=== PATIENT | female | born 1945 | race Caucasian/White ===

== ENCOUNTER 2016-03-24 10:13 | Emergency (ER) | payer OTHER ==
[~2016-03-24] VITALS: Ht 157.5 cm; Wt 56.8 kg
[~2016-03-24 10:13] MED LIST: ANT25 PO; LEVO50TA6 PO; XNX25X PO
[2016-03-24 10:17] VITALS: TEMP 36.6; Ht 157.5 cm; Wt 56.8 kg
[2016-03-24 11:10] LABS: BASO % 0.2 %; BASO ABS # 0.02 K/uL (0-0.2); COMPLETE YES; EOS % 0.7 %; HEMATOCRIT 42.4 % (37-47); IG% 0.2 %; LYMPH % 16.1 %; LYMPH ABS # 1.44 K/uL (1.2-3.4); MEAN CELL VOLUME 92.2 fL (80-100); MEAN CORPUSCULAR HEMOGLOBIN 31.5 pg (25-34); MEAN CORPUSCULAR HGB CONC 34.2 g/dl (32-36); MEAN PLATELET VOLUME 10.7 fL (7.4-10.4); MONO % 7.3 %; NEUT % 75.5 %; PLATELET COUNT 229 K/uL (130-400); WHITE BLOOD COUNT 8.95 K/uL (4.8-10.8)
[2016-03-24 11:19] LABS: MANUAL MICROSCOPIC REQUIRED? NO; REVIEW REQ? NO; URINE APPEARANCE CLEAR (CLEAR); URINE BILIRUBIN NEG (NEG); URINE COLOR YELLOW; URINE EPITHELIAL CELL AUTO >30 /lpf (0-5); URINE NITRITE POS (NEG); URINE SPECIFIC GRAVITY 1.012 (1.000-1.030); UROBILINOGEN NEG (NEG); ZZUR CULT IF INDIC CLEAN CATCH YES
[2016-03-24 11:40] LABS: ALKALINE PHOSPHATASE 89 U/L (45-117); ALT/SGPT 26 U/L (12-78); AST/SGOT 19 U/L (15-37); BLOOD UREA NITROGEN 19 mg/dl (7-18); BUN/CREATININE RATIO 15.8 (10-20); CALCIUM 9.8 mg/dl (8.5-10.1); CARBON DIOXIDE 26 mmol/L (21-32); CHLORIDE 105 mmol/L (98-107); GLUCOSE 115 mg/dl (70-99); POTASSIUM 4.3 mmol/L (3.5-5.1); SODIUM 140 mmol/L (136-145)
--- NOTE | 2016-03-24 12:27 | DIAGNOSTIC IMAGING REPORT ---
LUMBAR SPINE 2 OR 3 VIEWS CLINICAL HISTORY: lower back pain COMPARISON STUDY: None. FINDINGS: No fracture or subluxation within the lumbar spine. Mild disc space at L4-L5. Mild facet degenerative changes seen within the lower lumbar spine. Suture material within the right upper quadrant. IMPRESSION: No fracture or subluxation within the lumbar spine. Mild degenerative changes as described above. Electronically signed by: Humberto Landaverde M.D. 03/24/2016 12:25 PM Dictated Date/Time: 03/24/2016 12:23 PM
--- NOTE | 2016-03-24 13:01 | DIAGNOSTIC IMAGING REPORT ---
PELVIC ULTRASOUND, TRANSABDOMINAL HISTORY: pelvic mass COMPARISON: None. FINDINGS: The patient deferred transvaginal scanning. The patient is status post hysterectomy. Tubular hypoechoic structure along the right anterior side of the bladder favors a loop of bowel. No masses or fluid collections identified within the pelvis. IMPRESSION: 1. Status post hysterectomy. 2. No masses or fluid collection identified within the pelvis. Electronically signed by: Humberto Landaverde M.D. 03/24/2016 1:00 PM Dictated Date/Time: 03/24/2016 12:59 PM
[2016-03-24 13:10] VITALS: BP 100/65; PULSE 67; O2SAT 98
[2016-03-24] MEDS ORDERED: CEPHALEXIN MONOHYDRATE 250 MG CAP PO ONE (13:15)
[2016-03-24] MEDS ORDERED: CEPH500C2 PO (13:27)
--- NOTE | 2016-03-24 16:01 | EMERGENCY ROOM VISIT NOTE ---
History Report prepared by Brittany: Rebel Lambert Under the Supervision of: Dr. Nain Mcclure D.O. First contact with patient: 10:25 Chief Complaint: BACK PAIN Stated Complaint: LOWER BACK PAIN History of Present Illness The patient is a 70 year old female who presents to the Emergency Room with complaints of constant lower back pain for about a month. The patient additionally complains of a headache and a lump around her vagina that formed today. The patient denies any vaginal bleeding, discharge, weakness or numbness. She states that she has had off and on pain with urination. The patient states that her last bowel movement was this morning. She states that she has a history of a total hysterectomy. Patient has no other complaints at this time. Pt denies, change in vision, fevers, chest pain, shortness of breath , nausea, vomiting, diarrhea, and melena. Source of History: patient Onset: one month ago Position: back (lower) Timing: constant Associated Symptoms: + headache, + urinary symptoms, No numbness, No weakness Review of Systems See HPI for pertinent positives & negatives. A total of 10 systems reviewed and were otherwise negative. Past Medical & Surgical Medical Problems: (1) Hypothyroidism Surgical Problems: (1) History of appendectomy (2) History of cholecystectomy (3) History of hysterectomy Family History Patient reports no known family medical history. Social History Smoking Status: Current Every Day Smoker Alcohol Use: none Drug Use: none Marital Status: Housing Status: lives with family Occupation Status: retired Current/Historical Medications Scheduled Cephalexin Monohydrate (Keflex), 500 MG PO QID Levothyroxine Sodium (Levothyroxine Sodium), 50 MCG PO DAILY Scheduled PRN Alprazolam (Xanax), 0.25 MG PO TID PRN for Anxiety Allergies Coded Allergies: Morphine (Verified Allergy, Intermediate, GI SYMPTOMS, 03/24/16) Codeine (Verified Allergy, Unknown, ., 03/24/16) Doxycycline (Verified Allergy, Unknown, UNKNOWN, 03/24/16) Povidone (Verified Allergy, Unknown, ., 03/24/16) Sulfa Drugs (Verified Allergy, Unknown, ., 03/24/16) Tetracycline (Verified Allergy, Unknown, ., 03/24/16) Physical Exam Vital Signs Date Time Temp Pulse Resp B/P Pulse Ox O2 Delivery O2 Flow Rate FiO2 03/24/16 13:10 67 16 100/65 98 03/24/16 10:17 36.6 102 18 135/78 99 Room Air Physical Exam GENERAL: Sitting up. Alert, well appearing, well nourished, no distress, non- toxic EYE EXAM: normal conjunctiva OROPHARYNX: no exudate, no erythema, lips, buccal mucosa, and tongue normal and mucous membranes are moist NECK: supple, no nuchal rigidity, no adenopathy, non-tender LUNGS: Clear to auscultation. Normal chest wall mechanics HEART: no murmurs, S1 normal and S2 normal ABDOMEN: abdomen soft, non-tender, normo-active bowel sounds, no masses, no rebound or guarding. BACK: Acute reproducible tenderness in the right paraspinal region in the lower lumbar. SKIN: no rashes and no bruising UPPER EXTREMITIES: upper extremities are grossly normal. LOWER EXTREMITIES: Flexion and extension of the hip, knee ankle EHL 5/5 bilaterally. Gross sensation is intact. Able to ambulate without difficulty. NEURO EXAM: Normal sensorium : Normal external genitalia. Slight prolapse appears to be the vagina at about 12 to 11:00 but this does not protrude through the labia majora. No discharge or bleeding. Medical Decision & Procedures ER Provider Diagnostic Interpretation: Xray results per the radiologist and my interpretation. Other results have been interpreted by the radiologist and reviewed by me. LUMBAR SPINE 2 OR 3 VIEWS CLINICAL HISTORY: lower back pain COMPARISON STUDY: None. FINDINGS: No fracture or subluxation within the lumbar spine. Mild disc space at L4-L5. Mild facet degenerative changes seen within the lower lumbar spine. Suture material within the right upper quadrant. IMPRESSION: No fracture or subluxation within the lumbar spine. Mild degenerative changes as described above. Electronically signed by: Humberto Landaverde M.D. 03/24/2016 12:25 PM Dictated Date/Time: 03/24/2016 12:23 PM PELVIC ULTRASOUND, TRANSABDOMINAL HISTORY: pelvic mass COMPARISON: None. FINDINGS: The patient deferred transvaginal scanning. The patient is status post hysterectomy. Tubular hypoechoic structure along the right anterior side of the bladder favors a loop of bowel. No masses or fluid collections identified within the pelvis. IMPRESSION: 1. Status post hysterectomy. 2. No masses or fluid collection identified within the pelvis. Electronically signed by: Humberto Landaverde M.D. 03/24/2016 1:00 PM Dictated Date/Time: 03/24/2016 12:59 PM Laboratory Results 03/24/16 10:48 Red Blood Count 4.60, Mean Corpuscular Volume 92.2, Mean Corpuscular Hemoglobin 31.5, Mean Corpuscular Hemoglobin Concent 34.2, Mean Platelet Volume 10.7, Neutrophils (%) (Auto) 75.5, Lymphocytes (%) (Auto) 16.1, Monocytes (%) (Auto) 7.3, Eosinophils (%) (Auto) 0.7, Basophils (%) (Auto) 0.2, Neutrophils # (Auto) 6.76, Lymphocytes # (Auto) 1.44, Monocytes # (Auto) 0.65, Eosinophils # (Auto) 0.06, Basophils # (Auto) 0.02 03/24/16 10:48 Test 03/24/16 00:00 03/24/16 10:48 Urine Color YELLOW Urine Appearance CLEAR (CLEAR) Urine pH 5.0 (4.5-7.5) Urine Specific [place] 1.012 (1.000-1.030) Urine Protein NEG (NEG) Urine Glucose (UA) NEG (NEG) Urine Ketones NEG (NEG) Urine Occult Blood 1+ (NEG) Urine Nitrite POS (NEG) Urine Bilirubin NEG (NEG) Urine Urobilinogen NEG (NEG) Urine Leukocyte Esterase SMALL (NEG) Urine WBC (Auto) 1-5 /hpf (0-5) Urine RBC (Auto) 0-4 /hpf (0-4) Urine Hyaline Casts (Auto) 1-5 /lpf (0-5) Urine Epithelial Cells (Auto) >30 /lpf (0-5) Urine Bacteria (Auto) 4+ (NEG) White Blood Count 8.95 K/uL (4.8-10.8) Red Blood Count 4.60 M/uL (4.2-5.4) Hemoglobin 14.5 g/dL (12.0-16.0) Hematocrit 42.4 % (37-47) Mean Corpuscular Volume 92.2 fL (80-100) Mean Corpuscular Hemoglobin 31.5 pg (25-34) Mean Corpuscular Hemoglobin Concent 34.2 g/dl (32-36) Platelet Count 229 K/uL (130-400) Mean Platelet Volume 10.7 fL (7.4-10.4) Neutrophils (%) (Auto) 75.5 % Lymphocytes (%) (Auto) 16.1 % Monocytes (%) (Auto) 7.3 % Eosinophils (%) (Auto) 0.7 % Basophils (%) (Auto) 0.2 % Neutrophils # (Auto) 6.76 K/uL (1.4-6.5) Lymphocytes # (Auto) 1.44 K/uL (1.2-3.4) Monocytes # (Auto) 0.65 K/uL (0.11-0.59) Eosinophils # (Auto) 0.06 K/uL (0-0.5) Basophils # (Auto) 0.02 K/uL (0-0.2) RDW Standard Deviation 44.0 fL (36.4-46.3) RDW Coefficient of Variation 13.2 % (11.5-14.5) Immature Granulocyte % (Auto) 0.2 % Immature Granulocyte # (Auto) 0.02 K/uL (0.00-0.02) Anion Gap 9.0 mmol/L (3-11) Est Creatinine Clear Calc Drug Dose 35.0 ml/min Estimated GFR () 53.4 Estimated GFR (Non- 46.1 BUN/Creatinine Ratio 15.8 (10-20) Calcium Level 9.8 mg/dl (8.5-10.1) Total Bilirubin 0.4 mg/dl (0.2-1) Direct Bilirubin mg/dl (0-0.2) Aspartate Amino Transf (AST/SGOT) 19 U/L (15-37) Alanine Aminotransferase (ALT/SGPT) 26 U/L (12-78) Alkaline Phosphatase 89 U/L (45-117) Total Protein 7.9 gm/dl (6.4-8.2) Albumin 4.3 gm/dl (3.4-5.0) Lipase 148 U/L (73-393) Chemistry Specimen Hemolysis Laboratory results per my review. Medications Administered Medications (Trade) Dose Ordered Sig/Benjamin Route Start Time Stop Time Status Last Admin Dose Admin Cephalexin Monohydrate (Keflex Cap) 500 mg NOW ONCE PO 03/24/16 13:15 03/24/16 13:16 DC 03/24/16 13:12 500 MG ED Course ED COURSE: Vital signs were reviewed and showed tachycardia The patients medical record was reviewed The above diagnostic studies were performed and reviewed. ED treatments and interventions as stated above. 1025: The patient was evaluated in room A4. A complete history and physical examination was performed. 1315: Keflex Cap 500mg PO 1321: Upon reevaluation, the patient is resting.I discussed my findings with the patient and she understands and agrees with the treatment plan. Based on the patients age, coexisting illnesses, exam and lab findings the decision to treat as an outpatient was made. The patient remained stable while under my care. The patient appeared well at the time of discharge. Medical Decision Differential diagnoses includes but is not limited to lumbar radiculopathy, muscle strain, facture, cauda equina, mass, and disc herniation. Patient is a 70-year-old female who presents the ER for vaginal mass. She notes that she noted this this morning. She also admits to chronic low back pain which is worse with overuse over the past month. No weakness or numbness in the legs. CBC along with BMP, LFTs, bilirubin and lipase were unremarkable. UA had nitrates along with blood, leuks, bacteria but there were epithelial cells present. With her urgency and dysuria I did elect to treat with Keflex. Pelvic exam suggest a vaginal prolapse which I feel is the cause of her symptoms however this is extremely mild. Ultrasound was unremarkable. Updated the patient at bedside. She is discharged follow-up with gynecology within the week. Discussed with Pt concerning signs and symptoms to watch out for. Pt was instructed to follow up with their PCP and discussed with the patient their option to return to the ED at anytime for persistent or worsening symptoms. The appropriate anticipatory guidance and out-patient management, including indications for return to the emergency department, were explained at length to the patient and understood. Impression Primary Impression: UTI (urinary tract infection) Additional Impression: Vaginal prolapse Scribe Attestation The scribe's documentation has been prepared under my direction and personally reviewed by me in its entirety. I confirm that the note above accurately reflects all work, treatment, procedures, and medical decision making performed by me. Departure Information Dispostion Home / Self-Care Prescriptions Cephalexin Monohydrate (KEFLEX) 500 Mg Cap 500 MG PO QID for 7 Days, #28 CAP Prov: Nain Mcclure, DO 03/24/16 Referrals Taiwo Wade M.D. (PCP) Forms HOME CARE DOCUMENTATION FORM, IMPORTANT VISIT INFORMATION Patient Instructions My [facility], Pelvic Organ Prolapse, UTI Additional Instructions Please follow up with your primary care doctor with in the next 24 hours. Any worsening of your symptoms, please return to the ED immediately. This includes fevers greater than 100.4, worsening pain with urination, inability urinate, worsening pain, new pelvic mass, or any other concerning signs or symptoms from your standpoint. Please follow up with gynecology within the next week. Problem Qualifiers Primary Impression: UTI (urinary tract infection) Urinary tract infection type: acute cystitis Hematuria presence: with hematuria Qualified Codes: N30.01 - Acute cystitis with hematuria
--- NOTE | 2016-03-26 11:41 | Pharmacy Progress Note ---
ED Pharmacist Culture FollowUp Date of Service: Mar 26, 2016. Patient had originally been prescribed Keflex for treatment of UTI on 03/24, however the patient developed an allergic reaction to the Keflex. The urine culture finalized today and is growing pansensitive E coli. She has reported allergies to "sulfa", cephalosporins and tetracyclines. Her renal fxn is also poor, making nitrofurantoin a less desirable option. Reviewed the case with Dr Acuna. Will place the patient on Levofloxacin. I contacted the patient to determine which pharmacy she would like the new Rx called. She asked the Rx be called to [facility] ([phone]). I phone Rx for Levofloxacin 250mg PO daily x 7 days, No refill, per Dr Acuna.
[2016-05-28] MEDS ORDERED: ALPR-411 PO (10:51)
[2016-05-29] MEDS ORDERED: MCRB100 PO (16:42)
== END 2016-03-24 13:38 | disposition home or self-care (01) ==
LOC: C.EDB 10:14 → C.EDA 13:38
DX: N30.01 Acute cystitis with hematuria (principal); N81.10 Cystocele, unspecified; E03.9 Hypothyroidism, unspecified; F17.200 Nicotine dependence, unspecified, uncomplicated; Z79.899 Other long term (current) drug therapy

== ENCOUNTER 2016-03-25 20:59 | Emergency (ER) | payer OTHER ==
[~2016-03-25] VITALS: Ht 157.5 cm; Wt 57.9 kg
[~2016-03-25 20:59] MED LIST changes: +CEPH500C2 PO
[2016-03-25 21:10] VITALS: TEMP 37; Ht 157.5 cm; Wt 57.9 kg
[2016-03-25] MEDS ORDERED: IBUPROFEN 600 MG TAB PO STA (21:40)
[2016-03-25] MEDS ORDERED: DiphenhydrAMINE HCL 50 MG/ML VIAL IV STA (21:41)
[2016-03-25] MEDS: ONDANSETRON INJ 2 MG/ML 2 ML VIAL IV STA ×2 (21:57→22:01)
--- NOTE | 2016-03-25 22:05 | EMERGENCY ROOM VISIT NOTE ---
History Report prepared by Brittany: Cameron Monroe Under the Supervision of: Dr. Crissy Johnson D.O. First contact with patient: 21:28 Chief Complaint: ALLERGIC REACTION Stated Complaint: ALLERGIC REACTION Nursing Triage Summary: Pt was seen here yesterday and UTI and given Keflex. Pt reports she took a dose around 6pm today and approximately 45mins-1 hour later became to feel warm, had burning sensation down both her sides, numbness/tingling in arms and legs, and felt that her tongue was swelling. She reports feeling her heart racing and presents with headache 06/03. Denies SOB. History of Present Illness The patient is a 70 year old female who presents to the Emergency Room due to concerns over a possible allergic reaction after taking a dosage of Keflex tonight, 3.5 hours prior to arrival. The patient was in the Emergency Department yesterday and was diagnosed with a Urinary Tract Infection. She was given a prescription for Keflex and took two dosages yesterday. She took one dose early this morning and another this evening at 1800. After taking this last dose she began to experience burning under her arms, tingling sensations, and a dry mouth. She also states that it felt as though her heart was fluttering. The patient took one half of a Xanax when her symptoms began, without relief. At her appointment yesterday she was experiencing lower back pain, she states she is still experiencing her lower back pain and it is worse than yesterday. She also currently complaining of a headache. The patient is allergic to multiple prescription medications, and has experienced the burning sensation under her arms with previous reactions. She did not notice any rashes and did not take any Benadryl. Source of History: patient Onset: 3.5 hours [employer] Position: other (Global ) Quality: burning (Under Arms) Timing: other (Persistent) Associated Symptoms: + back pain, + headache Note: Bodily tingling, dry mouth. Review of Systems See HPI for pertinent positives & negatives. A total of 10 systems reviewed and were otherwise negative. Past Medical & Surgical Medical Problems: (1) Hypothyroidism Surgical Problems: (1) History of appendectomy (2) History of cholecystectomy (3) History of hysterectomy Family History Patient reports no known family medical history. Social History Smoking Status: Current Every Day Smoker Alcohol Use: none Drug Use: none Marital Status: Housing Status: lives with family Occupation Status: retired Current/Historical Medications Scheduled Cephalexin Monohydrate (Keflex), 500 MG PO QID Levothyroxine Sodium (Levothyroxine Sodium), 50 MCG PO DAILY Scheduled PRN Alprazolam (Xanax), 0.25 MG PO TID PRN for Anxiety Allergies Coded Allergies: Cephalexin (Verified Allergy, Intermediate, RASH, 03/26/16) Morphine (Verified Allergy, Intermediate, GI SYMPTOMS, 03/24/16) Codeine (Verified Allergy, Unknown, ., 03/24/16) Doxycycline (Verified Allergy, Unknown, UNKNOWN, 03/24/16) Povidone (Verified Allergy, Unknown, ., 03/24/16) Sulfa Drugs (Verified Allergy, Unknown, ., 03/24/16) Tetracycline (Verified Allergy, Unknown, ., 03/24/16) Physical Exam Vital Signs Date Time Temp Pulse Resp B/P Pulse Ox O2 Delivery O2 Flow Rate FiO2 03/26/16 00:10 66 16 100/62 95 03/25/16 23:04 76 16 105/51 93 Room Air 03/25/16 22:36 72 19 116/58 93 Room Air 03/25/16 22:12 80 03/25/16 21:10 37.0 77 15 138/64 96 Room Air 03/25/16 21:10 96 Room Air Physical Exam HEENT: Head - normocephalic and atraumatic Pupils are equal, round, and reactive to light. Extraocular eye muscles are intact, and sclera are anicteric. Nose - moist nasal mucosa without discharge. Mouth - moist buccal mucosa. Oropharynx is nonerythematous and there is no tonsillar exudate or edema noted. No uvular edema in posterior oropharynx. Neck: Supple; no JVD, nuchal rigidity, cervical lymphadenopathy. Heart: Regular rate and rhythm. There is a normal S1 and S2 with no murmurs, clicks, or gallops appreciated. Lungs: Clear to auscultation bilaterally with no wheezes, rales, or rhonchi. Abdomen: Soft, completely nontender, nondistended, with good bowel sounds. There are no palpable pulsatile masses or hepatosplenomegaly. There is no guarding, rigidity, or rebound noted. Extremities: No evidence of cyanosis, clubbing, or edema. There are easily palpable peripheral pulses. Skin: warm and dry with good turgor and no rashes. Medical Decision & Procedures Laboratory Results 03/25/16 21:12 Red Blood Count 4.30, Mean Corpuscular Volume 93.3, Mean Corpuscular Hemoglobin 31.4, Mean Corpuscular Hemoglobin Concent 33.7, Mean Platelet Volume 10.9, Neutrophils (%) (Auto) 71.2, Lymphocytes (%) (Auto) 20.9, Monocytes (%) (Auto) 6.1, Eosinophils (%) (Auto) 1.4, Basophils (%) (Auto) 0.3, Neutrophils # (Auto) 6.55, Lymphocytes # (Auto) 1.92, Monocytes # (Auto) 0.56, Eosinophils # (Auto) 0.13, Basophils # (Auto) 0.03 03/25/16 21:12 Test 03/25/16 21:12 White Blood Count 9.20 K/uL (4.8-10.8) Red Blood Count 4.30 M/uL (4.2-5.4) Hemoglobin 13.5 g/dL (12.0-16.0) Hematocrit 40.1 % (37-47) Mean Corpuscular Volume 93.3 fL (80-100) Mean Corpuscular Hemoglobin 31.4 pg (25-34) Mean Corpuscular Hemoglobin Concent 33.7 g/dl (32-36) Platelet Count 207 K/uL (130-400) Mean Platelet Volume 10.9 fL (7.4-10.4) Neutrophils (%) (Auto) 71.2 % Lymphocytes (%) (Auto) 20.9 % Monocytes (%) (Auto) 6.1 % Eosinophils (%) (Auto) 1.4 % Basophils (%) (Auto) 0.3 % Neutrophils # (Auto) 6.55 K/uL (1.4-6.5) Lymphocytes # (Auto) 1.92 K/uL (1.2-3.4) Monocytes # (Auto) 0.56 K/uL (0.11-0.59) Eosinophils # (Auto) 0.13 K/uL (0-0.5) Basophils # (Auto) 0.03 K/uL (0-0.2) RDW Standard Deviation 46.1 fL (36.4-46.3) RDW Coefficient of Variation 13.5 % (11.5-14.5) Immature Granulocyte % (Auto) 0.1 % Immature Granulocyte # (Auto) 0.01 K/uL (0.00-0.02) Anion Gap 10.0 mmol/L (3-11) Est Creatinine Clear Calc Drug Dose 30.0 ml/min Estimated GFR () 44.3 Estimated GFR (Non- 38.2 BUN/Creatinine Ratio 15.1 (10-20) Calcium Level 9.1 mg/dl (8.5-10.1) Laboratory results per my review. Medications Administered Medications (Trade) Dose Ordered Sig/Benjamin Route Start Time Stop Time Status Last Admin Dose Admin Ibuprofen (Motrin Tab) 600 mg NOW STAT PO 03/25/16 21:40 03/25/16 21:42 DC 03/25/16 21:56 600 MG Diphenhydramine HCl 25 mg 25 mg NOW STAT IV 03/25/16 21:41 03/25/16 21:42 DC 03/25/16 21:56 25 MG Sodium Chloride (Nss 500ml) 500 ml @ 999 mls/hr Q31M STAT IV 03/25/16 22:37 03/25/16 23:07 DC 03/25/16 22:43 999 MLS/HR Procedure Medications Ordered: Motrin, Benadryl, Zofran, Sodium Chloride. ED Course 2131: Past medical records reviewed. The patient was evaluated in room A3. A complete history and physical exam was performed. An IV lock was initiated and labs are drawn as above. 2139: Ordered Motrin 600 mg PO, Benadryl 25 mg IV. 2156: The patient is now complaining of nausea. I will order nausea medication. 2156: Ordered Zofran 4 mg IV. 2217: I reviewed the patient's urine culture from yesterday and showed greater than 100,000 colonies of E. Coli. Sensitivities were pending. 2236: Ordered Sodium Chloride 500 mL @ 999 mL/hr IV. 2238: I reevaluated the patient at this time, she has experienced significant relief of her back pain with Motrin. She feels much better. 2256: Upon reevaluation, the patient has had improvement of her symptoms. I discussed findings and results with her. She verbalized agreement of the treatment plan. The patient was discharged home. Medical Decision The patient is a 70 year old female who presents to the Emergency Department for a possible allergic reaction. Differential Diagnosis include: Allergic Reaction, anaphylaxis, pyelonephritis, sepsis, and urinary tract infection. Laboratory Results were reviewed and show: BUN elevated to 21, creatinine elevated to 1.4 from 1.2 yesterday. Glucose 96, no leukocytosis. The patient has evidence of Escherichia coli cystitis. She has significant drug allergies. She is now also allergic to Keflex. We will wait for her urine culture/sensitivities to prescribe another antibiotic. Renal function remains normal. She will use Benadryl for further reaction. She can use Motrin for headache or back pain. We will contact her once the sensitivities are resulted. The patient was noted to be moderately dehydrated. She was encouraged to take increase clear liquids. Impression Primary Impression: Allergic reaction Additional Impression: Dehydration Scribe Attestation The scribe's documentation has been prepared under my direction and personally reviewed by me in its entirety. I confirm that the note above accurately reflects all work, treatment, procedures, and medical decision making performed by me. Departure Information Dispostion Home / Self-Care Referrals Taiwo Wade M.D. (PCP) Forms HOME CARE DOCUMENTATION FORM, IMPORTANT VISIT INFORMATION Patient Instructions My [facility] Additional Instructions Stop the keflex You will be contacted tomorrow with a new antibiotic to treat your UTI. Benadryl - 25mg every 6 hours for further allergic reaction Take plenty of clear fluids Problem Qualifiers Primary Impression: Allergic reaction Encounter type: initial encounter Qualified Codes: T78.40XA - Allergy, unspecified, initial encounter
[2016-03-25 22:33] LABS: BUN/CREATININE RATIO 15.1 (10-20); CALCIUM 9.1 mg/dl (8.5-10.1); CREATININE 1.4 mg/dl (0.60-1.20); POTASSIUM 4.1 mmol/L (3.5-5.1)
[2016-03-25 22:35] LABS: BASO % 0.3 %; BASO ABS # 0.03 K/uL (0-0.2); COMPLETE YES; EOS % 1.4 %; HEMATOCRIT 40.1 % (37-47); IG% 0.1 %; LYMPH % 20.9 %; LYMPH ABS # 1.92 K/uL (1.2-3.4); MEAN CELL VOLUME 93.3 fL (80-100); MEAN CORPUSCULAR HEMOGLOBIN 31.4 pg (25-34); MEAN CORPUSCULAR HGB CONC 33.7 g/dl (32-36); MEAN PLATELET VOLUME 10.9 fL (7.4-10.4); MONO % 6.1 %; NEUT % 71.2 %; PLATELET COUNT 207 K/uL (130-400)
[2016-03-25] MEDS ORDERED: SODIUM CHLORIDE 0.9% 500ML 500 ML IV STA (22:37)
[2016-03-26 00:10] VITALS: BP 100/62; PULSE 66; O2SAT 95
[2016-05-28] MEDS ORDERED: ALPR-411 PO (10:51)
[2016-05-29] MEDS ORDERED: MCRB100 PO (16:42)
== END 2016-03-26 00:10 | disposition home or self-care (01) ==
LOC: EDBD 20:59 → C.EDA 21:00
DX: T78.40XA Allergy, unspecified, initial encounter (principal); T36.1X5A Adverse effect of cephalosporins and other beta-lactam antibiotics, initial encounter; R20.8 Other disturbances of skin sensation; R20.2 Paresthesia of skin; E86.0 Dehydration; E03.9 Hypothyroidism, unspecified; F17.200 Nicotine dependence, unspecified, uncomplicated; Z79.899 Other long term (current) drug therapy; X58.XXXA Exposure to other specified factors, initial encounter

== ENCOUNTER 2016-03-28 19:53 | Emergency (ER) | payer OTHER ==
[~2016-03-28] VITALS: Ht 157.5 cm; Wt 57.4 kg
[~2016-03-28 19:53] MED LIST changes: -ANT25 PO; -XNX25X PO
[2016-03-28 19:58] VITALS: TEMP 37.1; Ht 157.5 cm; Wt 57.4 kg
[2016-03-28] MEDS ORDERED: LEVO-17 PO (20:34)
[2016-03-28] MEDS ORDERED: SODIUM CHLORIDE 0.9% 1000ML 1,000 ML IV STA (21:06)
[2016-03-28] MEDS ORDERED: ONDANSETRON INJ 2 MG/ML 2 ML VIAL IV STA (21:06)
[2016-03-28 21:26] LABS: URINE APPEARANCE CLEAR (CLEAR); URINE BILIRUBIN NEG (NEG); URINE COLOR YELLOW; URINE NITRITE NEG (NEG); UROBILINOGEN NEG (NEG); ZZUR CULT IF INDIC CLEAN CATCH NO
--- NOTE | 2016-03-28 21:33 | DIAGNOSTIC IMAGING REPORT ---
CHEST ONE VIEW PORTABLE HISTORY: Atypical chest pain. COMPARISON: Chest 03/24/2015. FINDINGS: Stable slight elevation of the left hemidiaphragm. Mild interstitial thickening which is likely chronic. No new focal lung consolidations. No evidence for pulmonary edema. No pleural effusions. No pneumothorax. The heart remains top normal in size. IMPRESSION: No significant change compared to the prior study. No acute process. Electronically signed by: Humberto Landaverde M.D. 03/28/2016 9:32 PM Dictated Date/Time: 03/28/2016 9:31 PM
[2016-03-28 21:37] LABS: BASO % 0.2 %; BASO ABS # 0.02 K/uL (0-0.2); COMPLETE YES; EOS % 1.5 %; HEMATOCRIT 39.4 % (37-47); IG% 0.2 %; LYMPH % 20.7 %; LYMPH ABS # 1.82 K/uL (1.2-3.4); MEAN CELL VOLUME 92.5 fL (80-100); MEAN CORPUSCULAR HEMOGLOBIN 30.5 pg (25-34); MEAN PLATELET VOLUME 10.8 fL (7.4-10.4); MONO % 7.6 %; NEUT % 69.8 %; PLATELET COUNT 219 K/uL (130-400); RED BLOOD COUNT 4.26 M/uL (4.2-5.4); WHITE BLOOD COUNT 8.78 K/uL (4.8-10.8)
[2016-03-28 21:45] LABS: ALT/SGPT 27 U/L (12-78); BLOOD UREA NITROGEN 17 mg/dl (7-18); BUN/CREATININE RATIO 12.2 (10-20); CALCIUM 9.3 mg/dl (8.5-10.1); CARBON DIOXIDE 26 mmol/L (21-32); CHLORIDE 105 mmol/L (98-107); GLUCOSE 139 mg/dl (70-99); POTASSIUM 3.8 mmol/L (3.5-5.1); SODIUM 140 mmol/L (136-145)
[2016-03-28 21:48] LABS: MANUAL MICROSCOPIC REQUIRED? NO; REVIEW REQ? NO
[2016-03-28 21:48] LABS: ALKALINE PHOSPHATASE 88 U/L (45-117); AST/SGOT 15 U/L (15-37)
[2016-03-28] MEDS ORDERED: ACETAMINOPHEN 325 MG TAB PO STA (21:59)
[2016-03-28] MEDS ORDERED: OPTIRAY 320 IV PRN (22:00)
--- NOTE | 2016-03-28 22:30 | DIAGNOSTIC IMAGING REPORT ---
ABDOMEN AND PELVIS CT WITH IV CONTRAST CT DOSE: 261.18 mGy.cm HISTORY: Lower abdominal pain. TECHNIQUE: Multiaxial CT images of the abdomen and pelvis were performed following the use of intravenous contrast. COMPARISON STUDY: None. FINDINGS: The lung bases are essentially clear. No pneumoperitoneum. No pneumatosis. No suspicious lytic or blastic osseous lesions. There is a 3.1 cm infrarenal abdominal aortic aneurysm. Cholecystectomy. No hepatic or splenic masses. The pancreas, spleen, and adrenal glands are unremarkable. No hydronephrosis. Normal right kidney. A 4 mm hypodense lesion within the left kidney is too small to characterize. Slight prominence of the intrahepatic bile ducts is likely due to the patient's postcholecystectomy state. No retroperitoneal lymphadenopathy. Prior hysterectomy. The bladder is unremarkable. No bowel wall thickening or obstruction. Colonic diverticulosis. The appendix appears to be surgically absent. IMPRESSION: 1. No bowel wall thickening or obstruction. 2. Colonic diverticulosis. 3. Cholecystectomy, hysterectomy, and appendectomy. 4. A 3.1 cm infrarenal abdominal aortic aneurysm. Electronically signed by: Humberto Landaverde M.D. 03/28/2016 10:28 PM Dictated Date/Time: 03/28/2016 10:21 PM
[2016-03-28] MEDS ORDERED: AMPICILLIN 250 MG CAP PO STA (22:48)
[2016-03-28] MEDS ORDERED: AMPI500C9 PO (22:54)
[2016-03-28 23:05] VITALS: BP 131/70; PULSE 68; O2SAT 95
--- NOTE | 2016-03-28 23:42 | EMERGENCY ROOM VISIT NOTE ---
History Report prepared by Brittany: Kim Perez Under the Supervision of: Dr. Nain Mcclure D.O. First contact with patient: 20:50 Chief Complaint: ALLERGIC REACTION Stated Complaint: ALLERGIC REACTION TO MEDS Nursing Triage Summary: Patient was recently here for allergic reaction to cephalexin drugs. Patient started on Levaquin at that time. patient had taken 3 scheduled doses and tonight she began feeling very warm, flushed, numbness and tingling in the extremities. pt states also had rapid heart rate. Took 1/2 zantac tablet at home with some relief. History of Present Illness The patient is a 70 year old female who presents to the Emergency Room via ambulance with complaints of a possible allergic reaction that began about 3 hours ago. The patient was initially in the emergency room for urinary symptoms 4 days ago and was prescribed Keflex for a wang sensitive E. coli UTI. The following day, she came back to the emergency room after an allergic reaction to the antibiotic. She said that her mouth became very dry, she developed a burning sensation under her arms, and she became weak. She came to the emergency room and was treated with Motrin, Benadryl and fluids. She was discharged on Levaquin. The patient has taken 3 doses so far. She took her dose about 7 hours ago. About 3 hours ago, she started having a slightly similar reaction to what she felt 3 days ago. She developed a burning sensation under her arms, dry mouth, blurred vision, and a fast heart rate. Currently, she complains of a burning sensation throughout her entire body. She also complains of back pain, lower abdominal pain, and weakness. She notes that she had back pain prior to being diagnosed with the UTI and it has since worsened. She had 3 episodes of diarrhea today. She is eating and drinking normally. The patient states that she did not have the same reaction with the previous two doses of Levaquin that she has taken but she did have trouble sleeping last night. Her believes that she is working herself up. The patient states that she is getting worked up because of the symptoms she is having. She does have a history of anxiety but states that her symptoms tonight did not feel like an anxiety attack. She feels that she can recognize what is an anxiety attack and what is not. Pt denies headache, fevers, chest pain, shortness of breath, nausea , vomiting, pain with urination, and melena. Source of History: patient Onset: 3 hours ago Position: other (global) Timing: other (persistent) Associated Symptoms: + abdominal pain (lower), + back pain, + diarrhea, + weakness, No SOB, No chest pain, No fevers, No headache, No melena, No nausea, No vomiting Note: Other symptoms: burning sensation under her arms, dry mouth, blurred vision, and a fast heart rate Review of Systems See HPI for pertinent positives & negatives. A total of 10 systems reviewed and were otherwise negative. Past Medical & Surgical Medical Problems: (1) Hypothyroidism Surgical Problems: (1) History of appendectomy (2) History of cholecystectomy (3) History of hysterectomy Family History Patient reports no known family medical history. Social History Smoking Status: Current Every Day Smoker Alcohol Use: none Drug Use: none Marital Status: Housing Status: lives with family Occupation Status: retired Current/Historical Medications Scheduled Ampicillin (Ampicillin), 1 CAP PO QID Levofloxacin (Levaquin), 250 MG PO DAILY Levothyroxine Sodium (Levothyroxine Sodium), 50 MCG PO DAILY Scheduled PRN Alprazolam (Xanax), 0.25 MG PO TID PRN for Anxiety Allergies Coded Allergies: Levofloxacin (Verified Allergy, Severe, BURNING UNDER ARMS, RAPID HR, TINGLING, WEAKNESS, 03/28/16) Cephalexin (Verified Allergy, Intermediate, RASH, 03/26/16) Morphine (Verified Allergy, Intermediate, GI SYMPTOMS, 03/24/16) Codeine (Verified Allergy, Unknown, ., 03/24/16) Doxycycline (Verified Allergy, Unknown, UNKNOWN, 03/24/16) Povidone (Verified Allergy, Unknown, ., 03/24/16) Sulfa Drugs (Verified Allergy, Unknown, ., 03/24/16) Tetracycline (Verified Allergy, Unknown, ., 03/24/16) Physical Exam Vital Signs Date Time Temp Pulse Resp B/P Pulse Ox O2 Delivery O2 Flow Rate FiO2 03/28/16 23:05 68 16 131/70 95 03/28/16 22:36 70 20 136/66 97 Room Air 03/28/16 21:36 74 16 155/74 95 Room Air 03/28/16 20:07 76 03/28/16 19:58 37.1 74 18 168/71 96 Room Air 03/28/16 19:58 96 Room Air Physical Exam GENERAL: Sitting up in bed, disheveled, no acute distress, nontoxic. EYE EXAM: normal conjunctiva, PERRL and EOM's intact OROPHARYNX: no exudate, no erythema, lips, buccal mucosa, and tongue normal and mucous membranes are moist NECK: supple, no nuchal rigidity, no adenopathy, non-tender LUNGS: Clear to auscultation. Normal chest wall mechanics HEART: no murmurs, S1 normal and S2 normal ABDOMEN: abdomen soft, non-tender, normo-active bowel sounds, no masses, no rebound or guarding. BACK: Back is symmetrical on inspection and there is no deformity. Acute reproducible tenderness in the bilateral lumbar paraspinal region. No CVA tenderness. SKIN: no rashes and no bruising UPPER EXTREMITIES: upper extremities are grossly normal. LOWER EXTREMITIES: No pitting edema. NEURO EXAM: Normal sensorium, cranial nerves II-XII intact, normal speech, no weakness of arms, no weakness of legs. No drift. Finger to nose intact. Gross sensation intact. Medical Decision & Procedures ER Provider Diagnostic Interpretation: Results have been interpreted by the radiologist and reviewed by me. CHEST ONE VIEW PORTABLE HISTORY: Atypical chest pain. COMPARISON: Chest 03/24/2015. FINDINGS: Stable slight elevation of the left hemidiaphragm. Mild interstitial thickening which is likely chronic. No new focal lung consolidations. No evidence for pulmonary edema. No pleural effusions. No pneumothorax. The heart remains top normal in size. IMPRESSION: No significant change compared to the prior study. No acute process. Electronically signed by: Humberto Landaverde M.D. 03/28/2016 9:32 PM Dictated Date/Time: 03/28/2016 9:31 PM ABDOMEN AND PELVIS CT WITH IV CONTRAST CT DOSE: 261.18 mGy.cm HISTORY: Lower abdominal pain. TECHNIQUE: Multiaxial CT images of the abdomen and pelvis were performed following the use of intravenous contrast. COMPARISON STUDY: None. FINDINGS: The lung bases are essentially clear. No pneumoperitoneum. No pneumatosis. No suspicious lytic or blastic osseous lesions. There is a 3.1 cm infrarenal abdominal aortic aneurysm. Cholecystectomy. No hepatic or splenic masses. The pancreas, spleen, and adrenal glands are unremarkable. No hydronephrosis. Normal right kidney. A 4 mm hypodense lesion within the left kidney is too small to characterize. Slight prominence of the intrahepatic bile ducts is likely due to the patient's postcholecystectomy state. No retroperitoneal lymphadenopathy. Prior hysterectomy. The bladder is unremarkable. No bowel wall thickening or obstruction. Colonic diverticulosis. The appendix appears to be surgically absent. IMPRESSION: 1. No bowel wall thickening or obstruction. 2. Colonic diverticulosis. 3. Cholecystectomy, hysterectomy, and appendectomy. 4. A 3.1 cm infrarenal abdominal aortic aneurysm. Electronically signed by: Humberto Landaverde M.D. 03/28/2016 10:28 PM Dictated Date/Time: 03/28/2016 10:21 PM Laboratory Results 03/28/16 19:36 Red Blood Count 4.26, Mean Corpuscular Volume 92.5, Mean Corpuscular Hemoglobin 30.5, Mean Corpuscular Hemoglobin Concent 33.0, Mean Platelet Volume 10.8, Neutrophils (%) (Auto) 69.8, Lymphocytes (%) (Auto) 20.7, Monocytes (%) (Auto) 7.6, Eosinophils (%) (Auto) 1.5, Basophils (%) (Auto) 0.2, Neutrophils # (Auto) 6.12, Lymphocytes # (Auto) 1.82, Monocytes # (Auto) 0.67, Eosinophils # (Auto) 0.13, Basophils # (Auto) 0.02 03/28/16 19:36 Test 03/28/16 19:36 03/28/16 20:15 White Blood Count 8.78 K/uL (4.8-10.8) Red Blood Count 4.26 M/uL (4.2-5.4) Hemoglobin 13.0 g/dL (12.0-16.0) Hematocrit 39.4 % (37-47) Mean Corpuscular Volume 92.5 fL (80-100) Mean Corpuscular Hemoglobin 30.5 pg (25-34) Mean Corpuscular Hemoglobin Concent 33.0 g/dl (32-36) Platelet Count 219 K/uL (130-400) Mean Platelet Volume 10.8 fL (7.4-10.4) Neutrophils (%) (Auto) 69.8 % Lymphocytes (%) (Auto) 20.7 % Monocytes (%) (Auto) 7.6 % Eosinophils (%) (Auto) 1.5 % Basophils (%) (Auto) 0.2 % Neutrophils # (Auto) 6.12 K/uL (1.4-6.5) Lymphocytes # (Auto) 1.82 K/uL (1.2-3.4) Monocytes # (Auto) 0.67 K/uL (0.11-0.59) Eosinophils # (Auto) 0.13 K/uL (0-0.5) Basophils # (Auto) 0.02 K/uL (0-0.2) RDW Standard Deviation 44.9 fL (36.4-46.3) RDW Coefficient of Variation 13.4 % (11.5-14.5) Immature Granulocyte % (Auto) 0.2 % Immature Granulocyte # (Auto) 0.02 K/uL (0.00-0.02) Anion Gap 9.0 mmol/L (3-11) Est Creatinine Clear Calc Drug Dose 30.0 ml/min Estimated GFR () 44.3 Estimated GFR (Non- 38.2 BUN/Creatinine Ratio 12.2 (10-20) Calcium Level 9.3 mg/dl (8.5-10.1) Total Bilirubin 0.3 mg/dl (0.2-1) Direct Bilirubin < 0.1 mg/dl (0-0.2) Aspartate Amino Transf (AST/SGOT) 15 U/L (15-37) Alanine Aminotransferase (ALT/SGPT) 27 U/L (12-78) Alkaline Phosphatase 88 U/L (45-117) Total Protein 7.8 gm/dl (6.4-8.2) Albumin 4.1 gm/dl (3.4-5.0) Lipase 161 U/L (73-393) Urine Color YELLOW Urine Appearance CLEAR (CLEAR) Urine pH 5.0 (4.5-7.5) Urine Specific [place] 1.000 (1.000-1.030) Urine Protein NEG (NEG) Urine Glucose (UA) NEG (NEG) Urine Ketones NEG (NEG) Urine Occult Blood 1+ (NEG) Urine Nitrite NEG (NEG) Urine Bilirubin NEG (NEG) Urine Urobilinogen NEG (NEG) Urine Leukocyte Esterase SMALL (NEG) Urine WBC (Auto) 5-10 /hpf (0-5) Urine RBC (Auto) 0-4 /hpf (0-4) Urine Hyaline Casts (Auto) 1-5 /lpf (0-5) Urine Epithelial Cells (Auto) 10-20 /lpf (0-5) Urine Bacteria (Auto) NEG (NEG) Laboratory results per my review. Medications Administered Medications (Trade) Dose Ordered Sig/Benjamin Route Start Time Stop Time Status Last Admin Dose Admin Sodium Chloride (Nss 1000ml) 1,000 ml @ 999 mls/hr Q1H1M STAT IV 03/28/16 21:06 03/28/16 22:06 DC 03/28/16 21:16 999 MLS/HR Acetaminophen (Tylenol Tab) 650 mg NOW STAT PO 03/28/16 21:59 03/28/16 22:00 DC 03/28/16 22:35 650 MG Ampicillin (Ampicillin Cap) 500 mg NOW STAT PO 03/28/16 22:48 03/28/16 22:50 DC 03/28/16 23:04 500 MG ECG Indication: weakness Rate (beats per minute): 69 Rhythm: sinus rhythm Findings: no ectopy, other (normal axis) ED Course ED COURSE: Vital signs were reviewed and showed normal vitals. The patients medical record was reviewed The above diagnostic studies were performed and reviewed. ED treatments and interventions as stated above. 2056: The patient was evaluated in room C10. A complete history and physical examination was performed. 2105: Ordered Zofran Inj 4 mg IV, NSS 1000 ml @ 999 mls/hr IV. 2158: Ordered Tylenol Tab 650 mg PO. 6: Upon reevaluation, the patient is resting comfortably.I discussed my findings with the patient and she understands and agrees with the treatment plan. Based on the patients age, coexisting illnesses, exam and lab findings the decision to treat as an outpatient was made. The patient remained stable while under my care. The patient appeared well at the time of discharge. 2247: Ordered Ampicillin 500 mg PO. Medical Decision Differential diagnosis: Etiologies such as allergic reaction, anaphylaxis, urticaria, Platt-Jabari syndrome, toxic epidermal necrolysis, erythema multiforme, cellulitis, as well as others were entertained. Patient is a 70-year-old female who presents the ER for allergic reaction. She seen here several days ago by my self and treated for UTI and placed on Keflex. Following this she had allergic reaction which included a dry mouth along with diffuse bruising throughout her body. She was then placed on Levaquin for her next visit. She returns tonight again for dry mouth associated with diffuse burning throughout her entire body and she felt her heart racing slightly following taking another dose of Levaquin. Upon presentation to the ER she feels significantly better. Vitals are stable. CBC along with BMP, LFTs , bilirubin and lipase are unremarkable. UA has +1 hematuria. Remainder labs were unremarkable. CT of abdomen and pelvis was performed and was unremarkable as the patient continued to have lower back pain. Chest x-ray was unremarkable. Patient was given ampicillin as she has multiple other allergies. She thinks she has taking penicillin before in the past. Patient was discharged on ampicillin to follow-up with her primary care doctor tomorrow. I'm not sure whether these are chewable allergic reactions as a resolve on its own and she does note it does feel like her anxiety attacks but is different. At this time we'll refrain from any additional antibiotics. There is a 7% cross-reactivity with cephalosporins. Patient was also updated regards to her abdominal aortic aneurysm which is extremely small. Discussed with Pt concerning signs and symptoms to watch out for. Pt was instructed to follow up with their PCP and discussed with the patient their option to return to the ED at anytime for persistent or worsening symptoms. The appropriate anticipatory guidance and out-patient management, including indications for return to the emergency department, were explained at length to the patient and understood. Impression Primary Impression: Allergic reaction Additional Impression: UTI (urinary tract infection) Scribe Attestation The scribe's documentation has been prepared under my direction and personally reviewed by me in its entirety. I confirm that the note above accurately reflects all work, treatment, procedures, and medical decision making performed by me. Departure Information Dispostion Home / Self-Care Prescriptions Ampicillin (AMPICILLIN) 500 Mg Cap 1 CAP PO QID for 5 Days, #20 CAP Prov: Nain Mcclure, DO 03/28/16 Referrals Taiwo Wade M.D. (PCP) Forms HOME CARE DOCUMENTATION FORM, IMPORTANT VISIT INFORMATION Patient Instructions ED Allergic Reaction General Other, My [facility] Additional Instructions Please follow up with your primary care doctor with in the next 24 hours. Any worsening of your symptoms, please return to the ED immediately. This includes chest pain, shortness of breath, persistent nausea vomiting or diarrhea. Please take the antibiotic as prescribed. Your found to have a small abdominal aortic aneurysm which should be followed up with by her primary care doctor. Please mentioned this to him tomorrow. Problem Qualifiers Primary Impression: Allergic reaction Encounter type: initial encounter Qualified Codes: T78.40XA - Allergy, unspecified, initial encounter Additional Impression: UTI (urinary tract infection) Urinary tract infection type: acute cystitis Hematuria presence: with hematuria Qualified Codes: N30.01 - Acute cystitis with hematuria
[2016-05-28] MEDS ORDERED: ALPR-411 PO (10:51)
[2016-05-29] MEDS ORDERED: MCRB100 PO (16:42)
== END 2016-03-28 23:10 | disposition home or self-care (01) ==
LOC: EDBD 19:53 → C.EDC 19:55
DX: T78.40XA Allergy, unspecified, initial encounter (principal); X58.XXXA Exposure to other specified factors, initial encounter; N39.0 Urinary tract infection, site not specified; E03.9 Hypothyroidism, unspecified; F17.200 Nicotine dependence, unspecified, uncomplicated; Z90.710 Acquired absence of both cervix and uterus; Z90.49 Acquired absence of other specified parts of digestive tract; Z98.890 Other specified postprocedural states; Z79.899 Other long term (current) drug therapy; Z88.2 Allergy status to sulfonamides; Z88.5 Allergy status to narcotic agent; Z88.8 Allergy status to other drugs, medicaments and biological substances

== ENCOUNTER 2016-05-28 18:57 | Observation (INO) | payer OTHER ==
[~2016-05-28] VITALS: Ht 157.5 cm; Wt 57.2 kg
[~2016-05-28 18:57] MED LIST changes: +ALPR-411 PO; -CEPH500C2 PO; +LEVO-17 PO
[2016-05-28] MEDS ORDERED: LEVO50TA PO (19:28)
[2016-05-28] MEDS ORDERED: ATOR-22 PO (19:29)
[2016-05-28] MEDS ORDERED: METO25TA3 PO (19:29)
[2016-05-28] MEDS ORDERED: ASPI81TA28 PO (19:29)
--- NOTE | 2016-05-28 19:37 | EMERGENCY ROOM VISIT NOTE ---
History Report prepared by Brittany: Keith Wade Under the Supervision of: Dr. Mati Underwood D.O. First contact with patient: 19:16 Chief Complaint: BACK PAIN Stated Complaint: HEART RACING, BACK PAIN, ARM/LEG PAIN, HEADACHE History of Present Illness The patient is a 70 year old female who presents to the Emergency Room with complaints of worsening back pain beginning last night. The patient notes she has had back pain for the past year which worsened last night. She notes that she did not feel well last night and felt "weird". She took half of her anxiety pill which helped her to calm down. She took her medications this morning and went to work, and notes her balance was off today. Her back pain became intermittent, and is now constant. The patient adds that she occasionally has a stabbing pain in her chest, and some shortness of breath. She currently has the back pain, a headache, and adds that her legs are achy. The patient denies worsening of her pain with breathing or movement, and denies any recent falls. She does reports having some abdominal pain. The patient notes her heart beats too fast and is on Lipitor and baby Aspirin. She reports a history of cholecystectomy, and hysterectomy. The patient also reports a history of UTI, prolapsed bladder, and a recent abdominal aneurism. Source of History: patient Onset: last night Position: back Quality: other (back pain) Timing: worsening Associated Symptoms: + SOB, + abdominal pain, + chest pain, + headache Note: The patient notes her legs are achy. Review of Systems See HPI for pertinent positives & negatives. A total of 10 systems reviewed and were otherwise negative. Past Medical & Surgical Medical Problems: (1) Hypothyroidism Surgical Problems: (1) History of appendectomy (2) History of cholecystectomy (3) History of hysterectomy Family History Patient reports no known family medical history. Social History Smoking Status: Current Every Day Smoker Alcohol Use: none Drug Use: none Marital Status: Housing Status: lives with family Occupation Status: retired Current/Historical Medications Scheduled Aspirin (Aspirin Ec), 81 MG PO DAILY Atorvastatin (Lipitor), 20 MG PO DAILY Levothyroxine Sodium (Synthroid), 50 MCG PO DAILY Metoprolol Succ (Toprol Xl) (Toprol-Xl), 25 MG PO DAILY Scheduled PRN Alprazolam (Xanax), 0.25 MG PO TID PRN for Anxiety Allergies Coded Allergies: Levofloxacin (Verified Allergy, Severe, BURNING UNDER ARMS, RAPID HR, TINGLING, WEAKNESS, 05/28/16) Cephalexin (Verified Allergy, Intermediate, RASH, 05/28/16) Morphine (Verified Allergy, Intermediate, GI SYMPTOMS, 05/28/16) Clarithromycin (Verified Allergy, Unknown, UNKNOWN, 05/28/16) Codeine (Verified Allergy, Unknown, ., 05/28/16) Doxycycline (Verified Allergy, Unknown, UNKNOWN, 05/28/16) Povidone (Verified Allergy, Unknown, ., 05/28/16) Sulfa Drugs (Verified Allergy, Unknown, ., 05/28/16) Tetracycline (Verified Allergy, Unknown, ., 05/28/16) Physical Exam Vital Signs Date Time Temp Pulse Resp B/P Pulse Ox O2 Delivery O2 Flow Rate FiO2 05/28/16 23:26 58 05/28/16 21:22 85 16 141/71 97 Room Air 05/28/16 20:54 59 18 112/54 94 Room Air 05/28/16 19:23 74 05/28/16 19:01 36.6 72 18 137/55 100 Room Air Physical Exam GENERAL: Patient is awake alert in no acute distress patient is resting comfortably and showing no signs of anxiety EYES: The conjunctivae are clear. The pupils are round and reactive. EARS, NOSE, MOUTH AND THROAT: The nose is without any evidence of any deformity. Mucous membranes are moist tongue is midline NECK: The neck is nontender and supple. RESPIRATORY: Normal respiratory effort is noted there is no evidence of wheezing rhonchi or rales CARDIOVASCULAR: Regular rate and rhythm noted there no murmurs rubs or gallops normal S1 normal S2 GASTROINTESTINAL: Abdomen is soft and diffusely tender to palpation. Palpable aortic pulsations in the epigastric region. BACK: No midline tenderness to palpation. ROM appears intact. MUSCULOSKELETAL/EXTREMITIES: There is no evidence of gross deformity full range of motion is noted in the hips and shoulders SKIN: There is no obvious evidence of any rash. There are no petechiae, pallor or cyanosis noted. NEUROLOGIC: Patient is awake alert and oriented x3 strength is symmetric patellar reflexes are 2+ bilaterally Medical Decision & Procedures ER Provider Diagnostic Interpretation: Radiology results as stated below per my review and radiologist interpretation: CHEST ONE VIEW PORTABLE FINDINGS: The bones soft tissues and hemidiaphragms are normal. The cardiomediastinal silhouette is normal. The lungs are clear. The pulmonary vasculature is normal. IMPRESSION: Negative chest. Electronically signed by: Juan Mccurdy M.D. 05/28/2016 8:03 PM Dictated Date/Time: 05/28/2016 8:03 PM Study: CT chest angiogram combination FINDINGS: Mild osteophytic change thoracic aorta. No evidence for aneurysm or dissection. The pulmonary vasculature enhances appropriately. The lungs are considered clear. Mild interstitial and emphysematous change.: Apical fibrotic change most likely chronic IMPRESSION: 1. No evidence for aneurysm or dissection. 2. No evidence for pulmonary embolus. 3. Mild emphysematous and interstitial change throughout both hemithoraces with no well-defined focal infiltrate Electronically signed by: Juan Mccurdy M.D. 05/28/2016 9:34 PM Dictated Date/Time: 05/28/2016 9:[address] angiogram ANGIO ABD/PELVIS WITH CONTRAST FINDINGS: Lung bases are clear. Moderate atherosclerotic change abdominal aorta. Aneurysmal dilatation of the infrarenal aspect of the abdominal aorta with a maximum dimension of 3.0 cm. This is unchanged from the prior study. Atherosclerotic change of the iliac vasculature. No evidence for vascular occlusion. No evidence for dissection. Liver spleen and pancreas appear unremarkable. Prior cholecystectomy. Kidneys enhance uniformly. Bowel pattern is nonobstructive. Bladder is midline. No free fluid within the pelvic cul-de-sac. Inguinal regions are unremarkable. IMPRESSION: Stable 3 cm aneurysm of the infrarenal aspect of the abdominal aorta. No evidence for dissection. No acute process the abdomen or pelvis. Electronically signed by: Juan Mccurdy M.D. 05/28/2016 9:30 PM Dictated Date/Time: 05/28/2016 9:27 PM Laboratory Results 05/28/16 19:35 Red Blood Count 4.17, Mean Corpuscular Volume 92.3, Mean Corpuscular Hemoglobin 31.2, Mean Corpuscular Hemoglobin Concent 33.8, Mean Platelet Volume 10.7, Neutrophils (%) (Auto) 73.3, Lymphocytes (%) (Auto) 18.4, Monocytes (%) (Auto) 6.8, Eosinophils (%) (Auto) 1.1, Basophils (%) (Auto) 0.2, Neutrophils # (Auto) 7.77, Lymphocytes # (Auto) 1.95, Monocytes # (Auto) 0.72, Eosinophils # (Auto) 0.12, Basophils # (Auto) 0.02 05/28/16 19:35 Test 05/28/16 19:32 05/28/16 19:35 05/28/16 19:44 Urine Color YELLOW Urine Appearance CLEAR (CLEAR) Urine pH 5.0 (4.5-7.5) Urine Specific [place] 1.008 (1.000-1.030) Urine Protein NEG (NEG) Urine Glucose (UA) NEG (NEG) Urine Ketones NEG (NEG) Urine Occult Blood TRACE (NEG) Urine Nitrite NEG (NEG) Urine Bilirubin NEG (NEG) Urine Urobilinogen NEG (NEG) Urine Leukocyte Esterase MODERATE (NEG) Urine RBC 0-4 /hpf (0-4) Urine WBC 5-10 /hpf (0-5) Urine Epithelial Cells >30 /lpf (0-5) Urine Bacteria 1+ (NEG) Urine Yeast BUDDING (NONE PRSENT) White Blood Count 10.60 K/uL (4.8-10.8) Red Blood Count 4.17 M/uL (4.2-5.4) Hemoglobin 13.0 g/dL (12.0-16.0) Hematocrit 38.5 % (37-47) Mean Corpuscular Volume 92.3 fL (80-100) Mean Corpuscular Hemoglobin 31.2 pg (25-34) Mean Corpuscular Hemoglobin Concent 33.8 g/dl (32-36) Platelet Count 222 K/uL (130-400) Mean Platelet Volume 10.7 fL (7.4-10.4) Neutrophils (%) (Auto) 73.3 % Lymphocytes (%) (Auto) 18.4 % Monocytes (%) (Auto) 6.8 % Eosinophils (%) (Auto) 1.1 % Basophils (%) (Auto) 0.2 % Neutrophils # (Auto) 7.77 K/uL (1.4-6.5) Lymphocytes # (Auto) 1.95 K/uL (1.2-3.4) Monocytes # (Auto) 0.72 K/uL (0.11-0.59) Eosinophils # (Auto) 0.12 K/uL (0-0.5) Basophils # (Auto) 0.02 K/uL (0-0.2) RDW Standard Deviation 45.4 fL (36.4-46.3) RDW Coefficient of Variation 13.4 % (11.5-14.5) Immature Granulocyte % (Auto) 0.2 % Immature Granulocyte # (Auto) 0.02 K/uL (0.00-0.02) Prothrombin Time 10.4 SECONDS (9.0-12.0) Prothromb Time International Ratio 1.0 (0.9-1.1) Activated Partial Thromboplast Time 25.4 SECONDS (21.0-31.0) Partial Thromboplastin Ratio 1.0 Est Creatinine Clear Calc Drug Dose 35.0 ml/min Estimated GFR () 53.4 Estimated GFR (Non- 46.1 BUN/Creatinine Ratio 17.6 (10-20) Calcium Level 9.4 mg/dl (8.5-10.1) Total Bilirubin 0.4 mg/dl (0.2-1) Direct Bilirubin mg/dl (0-0.2) Aspartate Amino Transf (AST/SGOT) 24 U/L (15-37) Alanine Aminotransferase (ALT/SGPT) 31 U/L (12-78) Alkaline Phosphatase 90 U/L (45-117) Total Creatine Kinase 311 U/L (26-192) Creatine Kinase MB 3.1 ng/ml (0.5-3.6) Creatine Kinase MB Ratio 1.0 (0-3.0) Troponin I < 0.015 ng/ml (0-0.045) Total Protein 7.5 gm/dl (6.4-8.2) Albumin 4.2 gm/dl (3.4-5.0) Lipase 131 U/L (73-393) Chemistry Specimen Hemolysis Bedside Hemoglobin 13.3 g/dl (12.0-16.0) Bedside Hematocrit 39 % (37-47) Bedside Sodium 135 mEq/L (135-144) Bedside Potassium 6.0 mEq/L (3.3-5.0) Bedside Chloride 101 mEq/L (101-112) Bedside Total CO2 28 mEq/l (24-31) Anion Gap 13.0 mmol/L (16-25) Bedside Blood Urea Nitrogen 30 mg/dl (7-18) Bedside Creatinine 1.1 mg/dl (0.6-1.3) Bedside Glucose (other) 98 mg/dl (70-99) Bedside Ionized Calcium (Og) 1.19 mmol/l (1.12-1.32) Laboratory results per my review. Medications Administered Medications (Trade) Dose Ordered Sig/Benjamin Route Start Time Stop Time Status Last Admin Dose Admin Sodium Chloride (Nss 1000ml) 1,000 ml @ 999 mls/hr Q1H1M STAT IV 05/28/16 20:42 05/28/16 21:42 DC 05/28/16 21:39 999 MLS/HR Diphenhydramine HCl (Benadryl Inj) 25 mg NOW STAT IV 05/28/16 21:31 05/28/16 21:32 DC 05/28/16 21:38 25 MG Ketorolac Tromethamine (Toradol Inj) 30 mg NOW STAT IV 05/28/16 21:45 05/28/16 21:47 DC 05/28/16 21:50 30 MG ECG Indication: back/shoulder pain Rate (beats per minute): 61 Rhythm: normal sinus Findings: no ectopy, other (No acute ST segment abnormalities) Comparison ECG Date: March 28, 2016 Change: no significant change ED Course 1919: The patient was evaluated in room A9B. A complete history and physical examination were performed. 2041: Ordered Zofran Inj 4 mg IV, and NSS 1,000 ml @ 999 mls/hr IV. 2044: Ordered Morphine Sulfate 4 mg IV. 2130: Ordered Benadryl Inj 25 mg IV. 2144: Ordered Toradol Inj 30 mg IV. 2319: I discussed the patient's case with Dr. Mckeon. The patient will be evaluated for further management. Medical Decision Differential diagnosis: Etiologies such as musculoskeletal, disc herniation, fracture, aortic disease, metastatic disease, cord compression, discitis, infection, renal colic, gastrointestinal, acute exacerbation of chronic back pain, sciatica, cauda equina, as well as others were entertained. Nursing notes reviewed. The patient is a 70-year-old female who presented to the emergency department with mid thoracic pain. The patient's pain was nonreproducible and appeared to radiate around to her chest into her epigastric region. The patient is a history of an abdominal aortic aneurysm but this did not appear to be overly tender according to the patient. Her EKG did not show any acute change from previous and her initial troponin was negative. The patient was offered pain medication in the emergency department. She did not want anything too strong for pain medication but eventually took Benadryl and Toradol. I was concerned that this could represent a significant aortic problem so a CT of the chest and abdomen was obtained. No definite cause for the patient's pain could be found. She appeared to be very uncomfortable and I was unsure if this could represent a cardiac ischemic event. For this reason I discussed her case [facility] They've agreed to evaluate the patient in the emergency department for further management and disposition. Consults Time Called: [id number] Consulting Physician: Bandar Leon Returned Call: [phone] I discussed the patient's case with Dr. Mckeon. The patient will be evaluated for further management. Impression Primary Impression: Thoracic back pain Additional Impression: Chest pain Scribe Attestation The scribe's documentation has been prepared under my direction and personally reviewed by me in its entirety. I confirm that the note above accurately reflects all work, treatment, procedures, and medical decision making performed by me. Departure Information Dispostion Being Evaluated By Hospitalist Referrals Taiwo Wade M.D. (PCP) Patient Instructions [facility] Problem Qualifiers Primary Impression: Thoracic back pain Chronicity: acute Back pain laterality: midline Qualified Codes: M54.6 - Pain in thoracic spine Additional Impression: Chest pain Chest pain type: other chest pain Qualified Codes: R07.89 - Other chest pain
[2016-05-28 19:55] LABS: MANUAL MICROSCOPIC REQUIRED? YES; REVIEW REQ? NO; URINE APPEARANCE CLEAR (CLEAR); URINE BILIRUBIN NEG (NEG); URINE COLOR YELLOW; URINE NITRITE NEG (NEG); URINE SPECIFIC GRAVITY 1.008 (1.000-1.030); UROBILINOGEN NEG (NEG)
[2016-05-28 20:03] LABS: BASO % 0.2 %; BASO ABS # 0.02 K/uL (0-0.2); COMPLETE YES; EOS % 1.1 %; HEMATOCRIT 38.5 % (37-47); IG% 0.2 %; LYMPH % 18.4 %; LYMPH ABS # 1.95 K/uL (1.2-3.4); MEAN CELL VOLUME 92.3 fL (80-100); MEAN CORPUSCULAR HEMOGLOBIN 31.2 pg (25-34); MEAN CORPUSCULAR HGB CONC 33.8 g/dl (32-36); MEAN PLATELET VOLUME 10.7 fL (7.4-10.4); MONO % 6.8 %; NEUT % 73.3 %; PLATELET COUNT 222 K/uL (130-400); RED BLOOD COUNT 4.17 M/uL (4.2-5.4)
--- NOTE | 2016-05-28 20:05 | DIAGNOSTIC IMAGING REPORT ---
CHEST ONE VIEW PORTABLE CLINICAL HISTORY: ABDOMINAL PAIN/GI pain COMPARISON STUDY: 2016 FINDINGS: The bones soft tissues and hemidiaphragms are normal. The cardiomediastinal silhouette is normal. The lungs are clear. The pulmonary vasculature is normal. IMPRESSION: Negative chest. Electronically signed by: Juan Mccurdy M.D. 05/28/2016 8:03 PM Dictated Date/Time: 05/28/2016 8:03 PM
[2016-05-28 20:06] LABS: URINE BACTERIA 1+ (NEG); URINE RBC 0-4 /hpf (0-4)
[2016-05-28 20:12] LABS: PROTHROMBIN TIME (PATIENT) 10.4 SECONDS (9.0-12.0)
[2016-05-28 20:20] LABS: ISTAT CREATININE 1.1 mg/dl (0.6-1.3); ISTAT HEMOGLOBIN 13.3 g/dl (12.0-16.0); ISTAT IONIZED CALCIUM 1.19 mmol/l (1.12-1.32)
[2016-05-28 20:27] LABS: BLOOD UREA NITROGEN 21 mg/dl (7-18); GLUCOSE 97 mg/dl (70-99)
[2016-05-28 20:28] LABS: ALT/SGPT 31 U/L (12-78); BUN/CREATININE RATIO 17.6 (10-20); CALCIUM 9.4 mg/dl (8.5-10.1); CARBON DIOXIDE 27 mmol/L (21-32); CHLORIDE 102 mmol/L (98-107); POTASSIUM 4.4 mmol/L (3.5-5.1); SODIUM 137 mmol/L (136-145)
[2016-05-28 20:32] LABS: ALKALINE PHOSPHATASE 90 U/L (45-117); AST/SGOT 24 U/L (15-37)
[2016-05-28] MEDS ORDERED: ONDANSETRON INJ 2 MG/ML 2 ML VIAL IV STA (20:42)
[2016-05-28] MEDS ORDERED: SODIUM CHLORIDE 0.9% 1000ML 1,000 ML IV STA (20:42)
[2016-05-28] MEDS ORDERED: OPTIRAY 320 IV PRN (20:45)
[2016-05-28] MEDS ORDERED: MoRPHine SULFATE 4 MG/ML 1 ML CARP\\VIAL IV PRN (20:45)
[2016-05-28] MEDS ORDERED: DiphenhydrAMINE HCL 50 MG/ML VIAL IV STA (21:31)
--- NOTE | 2016-05-28 21:32 | DIAGNOSTIC IMAGING REPORT ---
CT angiogram ANGIO ABD/PELVIS WITH CONTRAST CLINICAL HISTORY: Pain pain TECHNIQUE: Transaxial acquisition with multi axial reformatted images COMPARISON STUDY: 03/28/2016 FINDINGS: Lung bases are clear. Moderate atherosclerotic change abdominal aorta. Aneurysmal dilatation of the infrarenal aspect of the abdominal aorta with a maximum dimension of 3.0 cm. This is unchanged from the prior study. Atherosclerotic change of the iliac vasculature. No evidence for vascular occlusion. No evidence for dissection. Liver spleen and pancreas appear unremarkable. Prior cholecystectomy. Kidneys enhance uniformly. Bowel pattern is nonobstructive. Bladder is midline. No free fluid within the pelvic cul-de-sac. Inguinal regions are unremarkable. IMPRESSION: Stable 3 cm aneurysm of the infrarenal aspect of the abdominal aorta. No evidence for dissection. No acute process the abdomen or pelvis. Electronically signed by: Juan Mccurdy M.D. 05/28/2016 9:30 PM Dictated Date/Time: 05/28/2016 9:27 PM
--- NOTE | 2016-05-28 21:35 | DIAGNOSTIC IMAGING REPORT ---
Study: CT chest angiogram combination HISTORY: Chest pain. Back pain. FINDINGS: Mild osteophytic change thoracic aorta. No evidence for aneurysm or dissection. The pulmonary vasculature enhances appropriately. The lungs are considered clear. Mild interstitial and emphysematous change.: Apical fibrotic change most likely chronic IMPRESSION: 1. No evidence for aneurysm or dissection. 2. No evidence for pulmonary embolus. 3. Mild emphysematous and interstitial change throughout both hemithoraces with no well-defined focal infiltrate Electronically signed by: Juan Mccurdy M.D. 05/28/2016 9:34 PM Dictated Date/Time: 05/28/2016 9:31 PM
[2016-05-28] MEDS ORDERED: KETOROLAC TROMETHAMINE 30 MG/ML VIAL IV STA (21:45)
[2016-05-29] VITALS (7 sets, daily range): BP systolic 100–141; BP diastolic 55–76; PULSE 56–75; TEMP 36.5–37; O2SAT 91–98; Ht 157.5 cm; Wt 57.2 kg
[2016-05-29 00:22] LABS: MAGNESIUM 2.2 mg/dl (1.8-2.4)
[2016-05-29] MEDS ORDERED: NITROFURANTOIN MONOHYDRATE 100 MG CAP PO STA (00:24)
[2016-05-29] MEDS ORDERED: ALPRAZOLAM 0.5 MG TAB PO STA (00:27)
[2016-05-29] MEDS ORDERED: ALPRAZOLAM 0.5 MG TAB PO PRN (00:30)
[2016-05-29] MEDS ORDERED: ONDANSETRON INJ 2 MG/ML 2 ML VIAL IV PRN (01:15)
[2016-05-29] MEDS ORDERED: TRAMADOL HCL 50 MG TAB PO PRN (01:15)
[2016-05-29] MEDS ORDERED: NITROGLYCERIN 0.4 MG SL PER TAB CHARGE SL PRN (01:15)
[2016-05-29] MEDS ORDERED: HYDROmorphone INJ 0.5 MG/0.5 ML SYR IV PRN (01:15)
[2016-05-29] MEDS ORDERED: ACETAMINOPHEN 325 MG TAB PO PRN (01:15)
[2016-05-29] MEDS ORDERED: LORAZEPAM 2 MG/ML 1 ML VIAL IV PRN (01:15)
[2016-05-29] MEDS ORDERED: SODIUM CHLORIDE 0.9% 1000ML 1,000 ML IV ONE (01:15)
--- NOTE | 2016-05-29 02:38 | HISTORY & PHYSICAL EXAMINATION ---
DATE OF ADMISSION: 05/29/2016 PRIMARY CARE DOCTOR: Dr. Wade Hx obtained from px and records. CHIEF COMPLAINT: Palpitations, chest pain, back pain HISTORY OF PRESENT ILLNESS: Medical history is significant for HTN, anxiety, arthritis, bladder prolapse, hyperlipidemia; ongoing tobacco abuse and hypothyroidism. Patient has had palpitations and chest/back discomfort for months now. Holter monitor showed PVCs and PACs. Patient was started on Toprol. Stress test was done in March 2016 showed no inducible ischemia, LVH and mild diastolic dysfunction. Patient had not been feeling well the last 2 days. [place] weird, off balance with recurrence of intermittent back pain, palpitations, and stabbing discomfort in the chest w/c prompted stress test from a few months back. No shortness of breath. Usual dry cough symptoms. Admits to some bladder discomfort. No fever, no chills. MEDICAL HISTORY: As above. SURGERIES: She had a breast biopsy, cholecystectomy, appendectomy, hysterectomy and hemorrhoid surgery. HOME MEDICATIONS: Include; aspirin, Xanax, Lipitor, Synthroid and Toprol. ALLERGIES: TO KEFLEX, CODEINE, DOXYCYCLINE, MORPHINE, TETRACYCLINE, CLARITHROMYCIN, IODINE, LEVOFLOXACIN AND SULFA. FAMILY HISTORY: Heart disease PERSONAL AND SOCIAL HISTORY: Down to 5 cigarettes a day. No chronic intake of alcoholic beverages. [place] personal [employer] employee. REVIEW OF SYSTEMS: As per HPI, all other ROS negative. PHYSICAL EXAMINATION: VITAL SIGNS: Blood pressure was noted to be 137/52 pulse rate 72, RR 18, temp 36.6 O2 sats 100 on room air. GENERAL: Noted to be comfortable, slightly anxious. SKIN: Normal color. HEENT: [place] palpebral conjunctivae. Dry mucosa. NECK: No JVD. supple CHEST: Clear to auscultation. HEART: Regular rate and rhythm ABDOMEN: Some distension, nontender. BACK: No tenderness. EXTREMITIES: No edema, no tenderness. NEUROLOGIC: No gross focality. LABORATORIES: Hemoglobin was noted to be 13, hematocrit 38, white blood cell count 9.6 and platelets 222. Sodium 137, potassium 4.4, chloride 102, CO2 27, BUN 30, creatinine 1.2, glucose was noted to be 98. trop 0 CT chest dissection study : mild emphysema, no infiltrate, no aneurysm defect, no PE. CT angio abd : stable 3cm AAA UA WBC est, epith EKG NSR no ischemia ASSESSMENT: 1. Chest discomfort, palpitations recurrent sx over the last few months recent outpx stress test normal multifactorial : anxiety symptomatic urinary tract infection, no sepsis. 2. Hypertension, stable 3. ongoing tobacco abuse 4. abdominal aortic aneurysm on CT. PLAN: Observation PCU. anxiolytic prn ff AM trop Macrodantin for UTI Cardio consult RE palpitations. Patient known to Dr. Gibson. Nicotine patch. periodic outpx ffup surveillance for AAA DVT prophylaxis, Lovenox subQ. Full code. MTDD
[2016-05-29] MEDS ORDERED: IV FLUIDS COMPLETED PRN (05:15)
[2016-05-29] MEDS ORDERED: LEVOTHYROXINE 50 MCG TAB PO SCH (06:30)
[2016-05-29 07:03] LABS: BASO % 0.4 %; BASO ABS # 0.03 K/uL (0-0.2); COMPLETE YES; EOS % 3.3 %; IG% 0.1 %; LYMPH % 29.3 %; LYMPH ABS # 2.16 K/uL (1.2-3.4); MEAN CELL VOLUME 93.7 fL (80-100); MEAN CORPUSCULAR HEMOGLOBIN 30.9 pg (25-34); MEAN PLATELET VOLUME 10.7 fL (7.4-10.4); MONO % 8.4 %; NEUT % 58.5 %; PLATELET COUNT 177 K/uL (130-400); RED BLOOD COUNT 3.95 M/uL (4.2-5.4); WHITE BLOOD COUNT 7.36 K/uL (4.8-10.8)
[2016-05-29 07:19] LABS: BLOOD UREA NITROGEN 20 mg/dl (7-18); BUN/CREATININE RATIO 16.6 (10-20); CALCIUM 8.5 mg/dl (8.5-10.1); CARBON DIOXIDE 27 mmol/L (21-32); CHLORIDE 109 mmol/L (98-107); GLUCOSE 83 mg/dl (70-99); MAGNESIUM 2.2 mg/dl (1.8-2.4); POTASSIUM 4.2 mmol/L (3.5-5.1); SODIUM 142 mmol/L (136-145)
[2016-05-29] MEDS ORDERED: ASPIRIN 81 MG ECTAB PO SCH (09:00)
[2016-05-29] MEDS ORDERED: NICOTINE 7 MG/24 HR TDSY TD SCH (09:00)
[2016-05-29] MEDS ORDERED: NITROFURANTOIN MONOHYDRATE 100 MG CAP PO SCH (09:00)
[2016-05-29] MEDS ORDERED: ATORVASTATIN 20 MG TAB PO SCH (09:00)
[2016-05-29] MEDS ORDERED: METOPROLOL SUCC 25MG EXT REL TAB PO SCH (09:00)
[2016-05-29] MEDS ORDERED: ENOXAPARIN 40 MG/0.4 ML SYR SC SCH (09:00)
[2016-05-29 09:32] LABS: CHOLESTEROL/HDL RATIO 2.4
--- NOTE | 2016-05-29 09:48 | CARDIOLOGY CONSULTATION ---
DATE OF CONSULTATION: 05/29/2016 REFERRING PHYSICIAN: Dr. Christopher Mckeon. REASON FOR CONSULTATION: Palpitations. CHIEF COMPLAINT ON ADMISSION: Back pain. HISTORY OF PRESENT ILLNESS: Ms. Barry is a 70-year-old female who I recently evaluated in March at the outpatient [facility] due to palpitations and chest discomfort. She presented to the Emergency Department with more than 48 hours of interscapular and low back pain. The patient feels that these symptoms seem to coincide with abdominal issues including bloating and excessive gas. She denies any chest discomfort. The discomfort has been constant for nearly 48 hours. She describes a burning sensation. There is no associated chest tightness or heaviness. At times she notes an "electrical shock," stabbing feeling in her anterior chest which lasts 1-2 seconds. These symptoms are short lived. There is no associated shortness of breath. Denies orthopnea, PND, lower extremity edema or claudication. She was able to work despite her back pain. There was no change with exertion. The pain seems to be improved when standing upright. Denies any recent injury, strain or heavy lifting. She did use a dose of Xanax at home which improved her palpitations. Recent cardiac workup included an exercise stress echo performed 04/12/2016, which was negative for inducible ischemia, at 100% of her maximum age predicted heart rate. A 24-hour Holter monitor was performed on 04/15/2016 demonstrating sinus rhythm and occasional PVCs, symptoms correlated with palpitations. Currently, the patient is comfortable and pain free. Offers no other complaints at this time. REVIEW OF SYSTEMS: The pertinent positives noted above, a comprehensive 10-system review is otherwise negative. PAST MEDICAL HISTORY: 1. Palpitations. 2. Atypical chest pain. 3. Dyslipidemia. 4. Left-sided carotid bruit. 5. A 3.1 cm abdominal aortic aneurysm. PAST SURGICAL HISTORY: 1. Cholecystectomy. 2. Hysterectomy. 3. Colonoscopy. FAMILY HISTORY: Father of myocardial infarction in his 30s. SOCIAL HISTORY: Active tobacco use with 25+ pack-year history of smoking. ALLERGIES: CEPHALEXIN, CLARITHROMYCIN, DOXYCYCLINE, IODINE, LEVOFLOXACIN, MORPHINE AND SULFA. OUTPATIENT MEDICATIONS: 1. Synthroid 50 mcg daily. 2. Toprol-XL 25 mg daily. 3. Atorvastatin 20 mg daily. 4. Xanax as needed. CT of the chest negative for aneurysm or dissection, no evidence of pulmonary embolus, mild bilateral emphysema. CT angiography of the abdomen and pelvis: Stable 3 cm aneurysm on the infrarenal aspect of the abdominal aorta. Chest x-ray on admission demonstrates no acute disease. LABORATORY DATA: Cardiac enzymes are negative x2 sets. Sodium is 142, potassium is 4.2, chloride is 109, CO2 is 27, BUN is 20, creatinine is 1.20. Magnesium is 2.2. TSH 1.90. White blood cell count 7.36, hemoglobin is 12.2, platelet count is 177. PT 10.4, INR is 1.0. Urine culture is pending. PHYSICAL EXAMINATION: VITAL SIGNS: Temperature is 36.6 degrees centigrade, pulse 56 beats per minute and regular, respiratory rate is 18 breaths per minute, blood pressure 108/55. SaO2 is 98% on room air. GENERAL: NAD, awake, alert and oriented x3. HEENT: Her mucous membranes are moist. There is no scleral icterus. The conjunctivae are pink. NECK: Supple without JVD, no HJR. There is a 2/4 left-sided carotid bruit. HEART: Regular with a normal S1 and S2. There is no murmur, rub or gallop. LUNGS: Clear without rales, rhonchi or wheeze. ABDOMEN: Soft and nontender. There is no rebound or guarding. Normal bowel sounds. EXTREMITIES: Warm and dry. There is no clubbing, cyanosis or edema. NEUROLOGIC: Demonstrates no focal motor deficit. FINAL IMPRESSION: 1. A 70-year-old female admitted with acute low back interscapular pain which does not appear to be cardiac in origin. CT of the chest negative for dissection or pulmonary embolus. CT angiogram of the abdomen and pelvis demonstrates stable 3 cm infrarenal abdominal aortic aneurysm. 2. Palpitations secondary to cardiac awareness and sense ventricular ectopy -- no significant dysrhythmia on telemetry, symptoms have resolved. The patient tolerating low-dose beta-la therapy. 3. History of atypical chest discomfort with recent exercise stress echocardiography negative for inducible ischemia at 100% of the maximum age predicted target heart rate in 03/2016. 4. Left-sided carotid bruit with recent carotid duplex demonstrating no significant obstructive carotid vascular disease. 5. Dyslipidemia. 6. Active tobacco abuse. PLAN AND RECOMMENDATIONS: I had a long discussion with the patient regarding her intermittent low back and interscapular discomfort. Cardiac testing is unremarkable including negative cardiac enzymes and stress testing as noted above. I do not believe any further cardiac workup is indicated at this time. Recommend pursuing noncardiac etiologies of her back pain. Her palpitations are well controlled and I recommend continuing low-dose beta-la therapy at this time. She will also continue her aspirin and statin therapy with history of infra-abdominal aortic aneurysm. Smoking cessation advised and the patient voiced understanding. Thank you for allowing me to take part in the care of your patient. I will see her for routine followup as scheduled in my office in 06/2016.
--- NOTE | 2016-05-29 16:22 | Progress Note ---
Internal Med Progress Note Date of Service: May 29, 2016. Provider Documentation: SUBJECTIVE: Patient is sitting in her bed an dis in no distress. Denies any chest pain/ pressure or SOB. Has been ambulating in the hallway without any distress or new symptoms. 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 OBJECTIVE: Vital Signs-as noted below Examination: GENERAL: Alert/Awake & Noted to be comfortable, slightly anxious. SKIN: Normal color. HEENT: [place] palpebral conjunctivae. Dry mucosa.Ears, Nose & Throat are normal looking. NECK: No JVD. supple, Central trachea. CHEST: B/L Clear to auscultation. HEART: Regular rate and rhythm. Normal S1, S2. ABDOMEN: Some distension, nontender.Normal Bowel sounds present. BACK: No tenderness. EXTREMITIES: No edema, no tenderness. NEUROLOGIC: No gross focality. Lab data as noted below. ASSESSMENT & PLAN: Chest Pain/Discomfort: Does not seem to be cardiac in etiology. Clinically & hemodynamically stable. Anxiety a likely component. -Serial Troponin are negative. -Reviewed Cardiology consult. Thanks for input. -Recent outpatient stress test normal -Lipid profile shows HDL 48 and LDL 43. Symptomatic UTI: No sepsis. Reflected by symptoms and abnormal UA. -Continue Macrodantin for total 7 days -Advised to drink more fluids. Hypertension: BP has been stable Ongoing Tobacco Abuse: Counselled the patient. Abdominal Aortic Aneurysm on CT.Not critical. -Needs follow up as outpatient for periodic surveillance. DVT Prophylaxis:Sq Lovenox Code Status: Full Code. Disposition: Discharge home later today. Follow up with PCP on 05/31/2016 @ 12.45 PM. Follow up with Cardiology as per their recommendations. Vital Signs: Date Time Temp Pulse Resp B/P Pulse Ox O2 Delivery O2 Flow Rate FiO2 05/29/16 15:28 37.0 60 18 122/61 96 Room Air 05/29/16 11:50 Room Air 05/29/16 11:30 36.5 62 18 117/63 93 Room Air 05/29/16 09:29 Room Air 05/29/16 07:45 Room Air 05/29/16 07:37 36.6 56 18 108/55 91 Room Air 05/29/16 01:35 36.5 67 16 141/76 Room Air 05/29/16 01:02 68 18 138/86 98 05/28/16 23:26 58 05/28/16 21:22 85 16 141/71 97 Room Air 05/28/16 20:54 59 18 112/54 94 Room Air 05/28/16 19:23 74 05/28/16 19:01 36.6 72 18 137/55 100 Room Air Lab Results: Results Past 24 Hours Test 05/28/16 19:32 05/28/16 19:35 05/28/16 19:44 05/29/16 06:10 Range/Units Urine Color YELLOW Urine Appearance CLEAR CLEAR Urine pH 5.0 4.5-7.5 Urine Specific [place] 1.008 1.000-1.030 Urine Protein NEG NEG Urine Glucose (UA) NEG NEG Urine Ketones NEG NEG Urine Occult Blood TRACE NEG Urine Nitrite NEG NEG Urine Bilirubin NEG NEG Urine Urobilinogen NEG NEG Urine Leukocyte Esterase MODERATE NEG Urine RBC 0-4 0-4 /hpf Urine WBC 5-10 0-5 /hpf Urine Epithelial Cells >30 0-5 /lpf Urine Bacteria 1+ NEG Urine Yeast BUDDING NONE PRSENT White Blood Count 10.60 7.36 4.8-10.8 K/uL Red Blood Count 4.17 3.95 4.2-5.4 M/uL Hemoglobin 13.0 12.2 12.0-16.0 g/dL Hematocrit 38.5 37.0 37-47 % Mean Corpuscular Volume 92.3 93.7 80-100 fL Mean Corpuscular Hemoglobin 31.2 30.9 25-34 pg Mean Corpuscular Hemoglobin Concent 33.8 33.0 32-36 g/dl Platelet Count 222 177 130-400 K/uL Mean Platelet Volume 10.7 10.7 7.4-10.4 fL Neutrophils (%) (Auto) 73.3 58.5 % Lymphocytes (%) (Auto) 18.4 29.3 % Monocytes (%) (Auto) 6.8 8.4 % Eosinophils (%) (Auto) 1.1 3.3 % Basophils (%) (Auto) 0.2 0.4 % Neutrophils # (Auto) 7.77 4.30 1.4-6.5 K/uL Lymphocytes # (Auto) 1.95 2.16 1.2-3.4 K/uL Monocytes # (Auto) 0.72 0.62 0.11-0.59 K/uL Eosinophils # (Auto) 0.12 0.24 0-0.5 K/uL Basophils # (Auto) 0.02 0.03 0-0.2 K/uL RDW Standard Deviation 45.4 46.4 36.4-46.3 fL RDW Coefficient of Variation 13.4 13.5 11.5-14.5 % Immature Granulocyte % (Auto) 0.2 0.1 % Immature Granulocyte # (Auto) 0.02 0.01 0.00-0.02 K/uL Prothrombin Time 10.4 9.0-12.0 SECONDS Prothromb Time International Ratio 1.0 0.9-1.1 Activated Partial Thromboplast Time 25.4 21.0-31.0 SECONDS Partial Thromboplastin Ratio 1.0 Sodium Level 137 142 136-145 mmol/L Potassium Level 4.4 4.2 3.5-5.1 mmol/L Chloride Level 102 109 98-107 mmol/L Carbon Dioxide Level 27 27 21-32 mmol/L Anion Gap 8.0 13.0 6.0 3-11 mmol/L Blood Urea Nitrogen 21 20 7-18 mg/dl Creatinine 1.20 1.20 0.60-1.20 mg/dl Est Creatinine Clear Calc Drug Dose 35.0 35.0 ml/min Estimated GFR () 53.4 53.4 Estimated GFR (Non- 46.1 46.1 BUN/Creatinine Ratio 17.6 16.6 10-20 Random Glucose 97 83 70-99 mg/dl Calcium Level 9.4 8.5 8.5-10.1 mg/dl Magnesium Level 2.2 2.2 1.8-2.4 mg/dl Total Bilirubin 0.4 0.2-1 mg/dl Direct Bilirubin 0-0.2 mg/dl Aspartate Amino Transf (AST/SGOT) 24 15-37 U/L Alanine Aminotransferase (ALT/SGPT) 31 12-78 U/L Alkaline Phosphatase 90 45-117 U/L Total Creatine Kinase 311 217 26-192 U/L Creatine Kinase MB 3.1 0.5-3.6 ng/ml Creatine Kinase MB Ratio 1.0 0-3.0 Troponin I < 0.015 < 0.015 0-0.045 ng/ml Total Protein 7.5 6.4-8.2 gm/dl Albumin 4.2 3.4-5.0 gm/dl Lipase 131 73-393 U/L Thyroid Stimulating Hormone (TSH) 1.900 0.300-4.500 uIu/ml Chemistry Specimen Hemolysis Bedside Hemoglobin 13.3 12.0-16.0 g/dl Bedside Hematocrit 39 37-47 % Bedside Sodium 135 135-144 mEq/L Bedside Potassium 6.0 3.3-5.0 mEq/L Bedside Chloride 101 101-112 mEq/L Bedside Total CO2 28 24-31 mEq/l Bedside Blood Urea Nitrogen 30 7-18 mg/dl Bedside Creatinine 1.1 0.6-1.3 mg/dl Bedside Glucose (other) 98 70-99 mg/dl Bedside Ionized Calcium (Og) 1.19 1.12-1.32 mmol/l Triglycerides Level 113 0-150 mg/dl Cholesterol Level 114 0-200 mg/dl HDL Cholesterol 48 mg/dl LDL Cholesterol, Calculated 43 mg/dl VLDL Cholesterol, Calculated 23 mg/dl Cholesterol/HDL Ratio 2.4 Hepatitis C Antibody Screen NEG NEG Microbiology Results 05/28/16 Urine Culture - Preliminary, Resulted PIN-POINT GROWTH PRESENT, REINCUBATING.
[2016-05-29] MEDS ORDERED: MCRB100 PO (16:42)
--- NOTE | 2016-05-29 16:43 | Discharge Instructions ---
Discharge Instructions Date of Service May 29, 2016. Admission Reason for Admission: Palpitations Discharge Discharge Diagnosis / Problem: Non-Cardiac Chest Pain Discharge Goals Goal(s): Decrease discomfort, Improve function, Increase independence, Improve disease control, Learn about illness, Diagnostic testing, Therapeutic intervention Activity Recommendations Activity Limitations: resume your previous activity (As Tolerated.) Lifting Limitations: none Exercise/Sports Limitations: as tolerated May Resume Sexual Activity: when tolerated Shower/Bathe: no limitations Driving or Machine Use: resume 3 days after discharge . Instructions / Follow-Up Instructions / Follow-Up Take medications as directed. Avoid Fried, Spicy and caffeinated products Drink adequate amount of fluids. Follow up with PCP on 05/31/2016 @ 12.45 PM. Follow up with Cardiology as per their recommendations. Current Hospital Diet Patient's current hospital diet: AHA Diet (Heart Healthy) Discharge Diet Recommended Diet: AHA Diet (Heart Healthy) Pending Studies Studies pending at discharge: no Laboratory Results Lipid Panel Test 05/29/16 06:10 Range/Units Triglycerides Level 113 0-150 mg/dl Cholesterol Level 114 0-200 mg/dl HDL Cholesterol 48 mg/dl Cholesterol/HDL Ratio 2.4 LDL Cholesterol, Calculated 43 mg/dl Medical Emergencies . Who to Call and When: Medical Emergencies: If at any time you feel your situation is an emergency, please call 911 immediately. . Non-Emergent Contact Non-Emergency issues call your: Primary Care Provider . . "Provider Documentation" section prepared by Dariel New. VTE Core Measure Inpt VTE Proph given/why not?: Enoxaparin (Lovenox)SQ
--- NOTE | 2016-05-29 16:47 | Discharge Summary ---
Discharge Summary Date of Service May 29, 2016. Discharge Summary Admission Date: May 29, 2016 at 00:25 Discharge Date: May 29, 2016 Discharge Disposition: Home Principal Diagnosis: Chest Pain (Non-cardiac) UTI Secondary Diagnoses/Problems: Hypertension Dyslipidemia Ongoing Tobacco Use Abdominal Aortic Aneurysm on CT Procedures: CT angiogram ANGIO ABD/PELVIS WITH CONTRAST CLINICAL HISTORY: Pain pain TECHNIQUE: Transaxial acquisition with multi axial reformatted images COMPARISON STUDY: 03/28/2016 FINDINGS: Lung bases are clear. Moderate atherosclerotic change abdominal aorta. Aneurysmal dilatation of the infrarenal aspect of the abdominal aorta with a maximum dimension of 3.0 cm. This is unchanged from the prior study. Atherosclerotic change of the iliac vasculature. No evidence for vascular occlusion. No evidence for dissection. Liver spleen and pancreas appear unremarkable. Prior cholecystectomy. Kidneys enhance uniformly. Bowel pattern is nonobstructive. Bladder is midline. No free fluid within the pelvic cul-de-sac. Inguinal regions are unremarkable. IMPRESSION: Stable 3 cm aneurysm of the infrarenal aspect of the abdominal aorta. No evidence for dissection. No acute process the abdomen or pelvis. Vaccinations: NONE Consultations: Cardiology Pending Studies/Follow-Up: Follow up with Cardiology in 2-4 weeks. Abdominal Aortic Aneurysm on CT which needs periodic surveillance. Medication Reconciliation New Medications: Nitrofurantoin Monohyd Macrocr (Nitrofurantoin Monohydrat) 100 Mg Cap 100 MG PO BID for 6 Days, #12 CAP Continued Medications: Alprazolam (Xanax) 0.5 Mg Tab 0.25 MG PO TID PRN for Anxiety, TAB Aspirin (Aspirin Ec) 81 Mg Tab 81 MG PO DAILY Atorvastatin (Lipitor) 20 Mg Tab 20 MG PO DAILY, TAB Levothyroxine Sodium (Synthroid) 50 Mcg Tab 50 MCG PO DAILY, TAB Metoprolol Succ (Toprol Xl) (Toprol-Xl) 25 Mg Tabcr 25 MG PO DAILY, #30 TAB Admission Information HPI (per Admitting provider): Medical history is significant for HTN, anxiety, arthritis, bladder prolapse, hyperlipidemia; ongoing tobacco abuse and hypothyroidism. Patient has had palpitations and chest/back discomfort for months now. Holter monitor showed PVCs and PACs. Patient was started on Toprol. Stress test was done in March 2016 showed no inducible ischemia, LVH and mild diastolic dysfunction. Patient had not been feeling well the last 2 days. [place] weird, off balance with recurrence of intermittent back pain, palpitations , and stabbing discomfort in the chest w/c prompted stress test from a few months back. No shortness of breath. Usual dry cough symptoms. Admits to some bladder discomfort. No fever, no chills. Physical Exam (per Admitting): VITAL SIGNS: Blood pressure was noted to be 137/52 pulse rate 72, RR 18, temp 36.6 O2 sats 100 on room air. GENERAL: Noted to be comfortable, slightly anxious. SKIN: Normal color. HEENT: [place] palpebral conjunctivae. Dry mucosa. NECK: No JVD. supple CHEST: Clear to auscultation. HEART: Regular rate and rhythm ABDOMEN: Some distension, nontender. BACK: No tenderness. EXTREMITIES: No edema, no tenderness. NEUROLOGIC: No gross focality. Hospital Course Chest Pain/Discomfort: Does not seem to be cardiac in etiology. Clinically & hemodynamically stable. Anxiety a likely component. -Serial Troponin are negative. -Reviewed Cardiology consult. Thanks for input. -Recent outpatient stress test normal -Lipid profile shows HDL 48 and LDL 43. Symptomatic UTI: No sepsis. Reflected by symptoms and abnormal UA. -Continue Macrodantin for total 7 days -Advised to drink more fluids. Hypertension: BP has been stable Dyslipidemia: Stable. Continue Statin. Ongoing Tobacco Abuse: Counselled the patient. Abdominal Aortic Aneurysm on CT.Not critical. -Needs follow up as outpatient for periodic surveillance. DVT Prophylaxis:Sq Lovenox Code Status: Full Code. Disposition: Discharge home later today. Follow up with PCP on 05/31/2016 @ 12.45 PM. Follow up with Cardiology as per their recommendations. Total time spent on discharge = 35 minutes. This includes examination of the patient, discharge planning, medication reconciliation, and communication with other providers. Discharge Instructions Discharge Goals Goal(s): Decrease discomfort, Improve function, Increase independence, Improve disease control, Learn about illness, Diagnostic testing, Therapeutic intervention Activity Recommendations Activity Limitations: resume your previous activity (As Tolerated.) Lifting Limitations: none Exercise/Sports Limitations: as tolerated May Resume Sexual Activity: when tolerated Shower/Bathe: no limitations Driving or Machine Use: resume 3 days after discharge . Instructions / Follow-Up Instructions / Follow-Up Take medications as directed. Avoid Fried, Spicy and caffeinated products Drink adequate amount of fluids. Follow up with PCP on 05/31/2016 @ 12.45 PM. Follow up with Cardiology as per their recommendations. Additional Copies To Taiwo Wade M.D.
== END 2016-05-29 18:17 | disposition home or self-care (01) ==
LOC: ENRESERVDT → ENRESERVTM → C.EDB 18:59 → C.MED 05-29 00:25
PROVIDERS: ADMIT Internal Medicine; ATTEND Emergency Medicine
DX: R00.2 Palpitations (principal); N39.0 Urinary tract infection, site not specified; I10 Essential (primary) hypertension; E78.5 Hyperlipidemia, unspecified; M54.6 Pain in thoracic spine; F17.210 Nicotine dependence, cigarettes, uncomplicated; E03.9 Hypothyroidism, unspecified; I71.4 Abdominal aortic aneurysm, without rupture; N81.10 Cystocele, unspecified; Z79.82 Long term (current) use of aspirin; Z90.49 Acquired absence of other specified parts of digestive tract; Z90.710 Acquired absence of both cervix and uterus; Z82.49 Family history of ischemic heart disease and other diseases of the circulatory system

== ENCOUNTER 2016-10-04 12:24 | Emergency (ER) | payer OTHER ==
[~2016-10-04] VITALS: Ht 157.5 cm; Wt 53.2 kg
[~2016-10-04 12:24] MED LIST changes: +ASPI81TA28 PO; +ATOR-22 PO; -LEVO-17 PO; +LEVO50TA PO; -LEVO50TA6 PO; +MCRB100 PO; +METO25TA3 PO
[2016-10-04 12:31] VITALS: TEMP 36.8; Ht 157.5 cm; Wt 53.2 kg
[2016-10-04] MEDS ORDERED: SENNTAB23 PO (13:38)
[2016-10-04] MEDS ORDERED: PRLSR20 PO (13:38)
[2016-10-04 13:58] LABS: BASO % 0.2 %; BASO ABS # 0.02 K/uL (0-0.2); COMPLETE YES; EOS % 1.3 %; HEMATOCRIT 41.4 % (37-47); IG% 0.2 %; LYMPH % 14.6 %; LYMPH ABS # 1.69 K/uL (1.2-3.4); MEAN CELL VOLUME 94.1 fL (80-100); MEAN CORPUSCULAR HEMOGLOBIN 31.4 pg (25-34); MEAN CORPUSCULAR HGB CONC 33.3 g/dl (32-36); MEAN PLATELET VOLUME 10.7 fL (7.4-10.4); MONO % 6.6 %; NEUT % 77.1 %; PLATELET COUNT 221 K/uL (130-400)
[2016-10-04 14:07] LABS: BUN/CREATININE RATIO 15.8 (10-20); CALCIUM 9.3 mg/dl (8.5-10.1); CREATININE 1.1 mg/dl (0.60-1.20); POTASSIUM 4.1 mmol/L (3.5-5.1)
[2016-10-04 14:09] LABS: ALB/GLOB RATIO 1.1 (0.9-2)
[2016-10-04] MEDS ORDERED: HYDROmorphone INJ 0.5 MG/0.5 ML SYR IV STA (14:09)
[2016-10-04] MEDS ORDERED: SODIUM CHLORIDE 0.9% 500ML 500 ML IV STA (14:09)
[2016-10-04] MEDS ORDERED: ONDANSETRON INJ 2 MG/ML 2 ML VIAL IV STA (14:09)
[2016-10-04 14:21] LABS: URINE APPEARANCE CLEAR (CLEAR); URINE BILIRUBIN NEG (NEG); URINE COLOR YELLOW; URINE EPITHELIAL CELL AUTO >30 /lpf (0-5); URINE NITRITE NEG (NEG); URINE SPECIFIC GRAVITY 1.016 (1.000-1.030); UROBILINOGEN NEG (NEG); ZZUR CULT IF INDIC CLEAN CATCH YES
[2016-10-04 14:23] LABS: MANUAL MICROSCOPIC REQUIRED? NO; REVIEW REQ? YES
--- NOTE | 2016-10-04 14:26 | DIAGNOSTIC IMAGING REPORT ---
CHEST ONE VIEW PORTABLE CLINICAL HISTORY: [place] dyspnea. Cardiac arrhythmia. COMPARISON STUDY: 05/28/2016. FINDINGS: minimal bibasilar chronic atelectatic change. Mild apical fibrotic change considered chronic. No acute infiltrate. No evidence for cardiac enlargement. IMPRESSION: Chronic change. No acute process. The above report was generated using voice recognition software. It may contain grammatical, syntax or spelling errors. Electronically signed by: Juan Mccurdy M.D. 10/04/2016 2:25 PM Dictated Date/Time: 10/04/2016 2:23 PM
--- NOTE | 2016-10-04 14:52 | DIAGNOSTIC IMAGING REPORT ---
HEAD WITHOUT CONTRAST (CT) CLINICAL HISTORY: 71 years-old Female presents with acute headache. TECHNIQUE: Multiple axial CT images of the head were obtained without contrast. A dose lowering technique was utilized adhering to the principles of ALARA. CT DOSE: 638.56 mGycm COMPARISON: CT head 03/24/2015 FINDINGS: No acute intracranial hemorrhage, midline shift, mass, large territorial ischemia or abnormal extra-axial collection. There is mild cerebral and cerebellar atrophy. The calvarium is intact. The paranasal sinuses, mastoid air cells, and middle ear cavities are clear. There is evidence of prior bilateral cataract repair. IMPRESSION: Mild atrophy without acute intracranial abnormality. The above report was generated using voice recognition software. It may contain grammatical, syntax or spelling errors. Electronically signed by: Jermaine Alegria M.D. 10/04/2016 2:51 PM Dictated Date/Time: 10/04/2016 2:49 PM
[2016-10-04 15:44] VITALS: O2SAT 97
[2016-10-04] MEDS ORDERED: LORAZEPAM 0.5 MG TAB SL STA (18:14)
--- NOTE | 2016-10-04 19:02 | DIAGNOSTIC IMAGING REPORT ---
Brain MRI WITHOUT CONTRAST HISTORY: Headache. TECHNIQUE: Multiplanar multisequence MRI of the brain was performed without the use of contrast. COMPARISON STUDY: Head CT 10/04/2016. FINDINGS: There is no mass, hematoma, midline shift, or acute infarct. The paranasal sinuses are clear. The mastoid air cells are clear. The ventricles and sulci demonstrate mild age-related involutional changes. Scattered foci of T2 hyperintensity seen within the periventricular and subcortical white matter are nonspecific but suggestive of mild microvascular ischemic changes. The major vascular flow voids at the skull base are well-maintained. IMPRESSION: No acute intracranial abnormality. A few scattered foci of T2 hyperintensity seen within the periventricular and subcortical white matter are nonspecific but favor mild microvascular ischemic change. Electronically signed by: Humberto Landaverde M.D. 10/04/2016 7:01 PM Dictated Date/Time: 10/04/2016 6:56 PM
--- NOTE | 2016-10-04 19:54 | DIAGNOSTIC IMAGING REPORT ---
BILATERAL LOWER EXTREMITY VENOUS DOPPLER CLINICAL HISTORY: Positive d-dimer. COMPARISON STUDY: No previous studies for comparison. TECHNIQUE: Sonography of the deep venous system of the bilateral lower extremities was performed. Compression and augmentation were evaluated. FINDINGS: The bilateral common femoral, superficial femoral and popliteal veins were compressible. Augmentation was normal. Flow was shown within the deep calf vessels. IMPRESSION: No evidence of deep venous thrombus within the bilateral lower extremities. Electronically signed by: Omer Walker M.D. 10/04/2016 7:52 PM Dictated Date/Time: 10/04/2016 7:52 PM
[2016-10-04 20:21] VITALS: BP 120/49; PULSE 52; O2SAT 95
--- NOTE | 2016-10-04 20:39 | EMERGENCY ROOM VISIT NOTE ---
History Report prepared by Brittany: Humberto Joy Under the Supervision of: Dr. Nain Mcclure D.O. First contact with patient: 13:58 Chief Complaint: ILLNESS Stated Complaint: DIZZY, HEART RACING, PRATT, TINGLING ALL OVER Nursing Triage Summary: Patient was recently here for allergic reaction to cephalexin drugs. Patient started on Levaquin at that time. patient had taken 3 scheduled doses and tonight she began feeling very warm, flushed, numbness and tingling in the extremities. pt states also had rapid heart rate. Took 1/2 zantac tablet at home with some relief. History of Present Illness The patient is a 71 year old female who presents to the Emergency Room with complaints of an intermittent headache that began occurring 2 weeks ago. She rates her pain a 9/10 in severity. Since 0900 this morning, her headache came on gradually and has progressively worsened. She notes that this morning she began to feel short of breath, and she thought her tongue was bigger than it should be. She also felt some tingling in her extremities and inside her mouth. All of her symptoms except for her headache resolved after she took a Xanax 1.5 hours ago. She denies any allergies to anything. She was talking normally at the time of the tingling. There is no facial droop per . She also admits to her heart racing at that time but that has resolved. Denies any chest pain. Headache has been coming and going daily for the past 2 weeks. She had no focal deficit per her report. Pt denies change in vision, fevers, chest pain, shortness of breath, nausea, vomiting, diarrhea, pain with urination , and melena. Source of History: patient Onset: 2 weeks ago Position: head Symptom Intensity: 9/10 Quality: ache Timing: intermittent Associated Symptoms: No chest pain, No nausea, No vomiting, No melena, No diarrhea, No urinary symptoms Note: She had tingling to the extremities and shortness of breath, but they resolved after a Xanax. Review of Systems See HPI for pertinent positives & negatives. A total of 10 systems reviewed and were otherwise negative. Past Medical & Surgical Medical Problems: (1) Hypothyroidism (2) Palpitations Surgical Problems: (1) History of appendectomy (2) History of cholecystectomy (3) History of hysterectomy Family History Patient reports no known family medical history. Social History Smoking Status: Current Every Day Smoker Alcohol Use: none Drug Use: none Marital Status: Housing Status: lives with family Occupation Status: retired Current/Historical Medications Scheduled Aspirin (Aspirin Ec), 81 MG PO QAM Levothyroxine Sodium (Synthroid), 50 MCG PO QAM Metoprolol Succ (Toprol Xl) (Toprol-Xl), 25 MG PO QAM Omeprazole (Prilosec), 20 MG PO QAM Sennosides-Docusate Sodium (Stool Softener), 1 TAB PO UD Scheduled PRN Alprazolam (Xanax), 0.25 MG PO TID PRN for Anxiety Allergies Coded Allergies: Levofloxacin (Verified Allergy, Severe, BURNING UNDER ARMS, RAPID HR, TINGLING, WEAKNESS, 10/04/16) Cephalexin (Verified Allergy, Intermediate, RASH, 10/04/16) Morphine (Verified Allergy, Intermediate, GI SYMPTOMS, 10/04/16) Clarithromycin (Verified Allergy, Unknown, UNKNOWN, 10/04/16) Codeine (Verified Allergy, Unknown, ., 10/04/16) Doxycycline (Verified Allergy, Unknown, UNKNOWN, 10/04/16) Povidone (Verified Allergy, Unknown, ., 10/04/16) Sulfa Drugs (Verified Allergy, Unknown, ., 10/04/16) Tetracycline (Verified Allergy, Unknown, ., 10/04/16) Physical Exam Vital Signs Date Time Temp Pulse Resp B/P (MAP) Pulse Ox O2 Delivery O2 Flow Rate FiO2 10/04/16 20:21 52 18 120/49 95 10/04/16 18:26 62 22 133/66 97 Room Air 10/04/16 17:03 58 106/56 97 10/04/16 15:45 52 22 104/53 98 Nasal Cannula 2.0 10/04/16 15:44 97 Nasal Cannula 2.0 10/04/16 15:43 87 Room Air 10/04/16 14:02 60 10/04/16 13:53 77 19 107/57 97 Room Air 10/04/16 12:31 36.8 78 18 135/68 96 Room Air Physical Exam GENERAL: alert, well appearing, well nourished, no acute distress, non-toxic, anxious, sitting up in bed EYE EXAM: normal conjunctiva, PERRL and EOM's intact OROPHARYNX: no exudate, no erythema, lips, buccal mucosa, and tongue normal and mucous membranes are moist NECK: supple, no nuchal rigidity, no adenopathy, non-tender LUNGS: Clear to auscultation. Normal chest wall mechanics HEART: no murmurs, S1 normal and S2 normal ABDOMEN: abdomen soft, non-tender, normo-active bowel sounds, no masses, no rebound or guarding. BACK: Back is symmetrical on inspection and there is no deformity, no midline tenderness, no CVA tenderness. SKIN: no rashes and no bruising UPPER EXTREMITIES: upper extremities are grossly normal. LOWER EXTREMITIES: No pitting edema. NEURO EXAM: Normal sensorium, cranial nerves II-XII intact, normal speech, no weakness of arms, no weakness of legs. No drift. Finger to nose intact. Gross sensation intact. Rapid alternating movements of upper extremities intact. Able to ambulate without difficulty. Medical Decision & Procedures ER Provider Diagnostic Interpretation: Radiology results as stated below per my review and the radiologist's interpretation: HEAD WITHOUT CONTRAST (CT) CLINICAL HISTORY: 71 years-old Female presents with acute headache. TECHNIQUE: Multiple axial CT images of the head were obtained without contrast. A dose lowering technique was utilized adhering to the principles of ALARA. CT DOSE: 638.56 mGycm COMPARISON: CT head 03/24/2015 FINDINGS: No acute intracranial hemorrhage, midline shift, mass, large territorial ischemia or abnormal extra-axial collection. There is mild cerebral and cerebellar atrophy. The calvarium is intact. The paranasal sinuses, mastoid air cells, and middle ear cavities are clear. There is evidence of prior bilateral cataract repair. IMPRESSION: Mild atrophy without acute intracranial abnormality. The above report was generated using voice recognition software. It may contain grammatical, syntax or spelling errors. Electronically signed by: Jermaine Alegria M.D. 10/04/2016 2:51 PM Dictated Date/Time: 10/04/2016 2:49 PM CHEST ONE VIEW PORTABLE CLINICAL HISTORY: Pratt dyspnea. Cardiac arrhythmia. COMPARISON STUDY: 05/28/2016. FINDINGS: minimal bibasilar chronic atelectatic change. Mild apical fibrotic change considered chronic. No acute infiltrate. No evidence for cardiac enlargement. IMPRESSION: Chronic change. No acute process. The above report was generated using voice recognition software. It may contain grammatical, syntax or spelling errors. Electronically signed by: Juan Mccurdy M.D. 10/04/2016 2:25 PM Dictated Date/Time: 10/04/2016 2:23 PM Brain MRI WITHOUT CONTRAST HISTORY: Headache. TECHNIQUE: Multiplanar multisequence MRI of the brain was performed without the use of contrast. COMPARISON STUDY: Head CT 10/04/2016. FINDINGS: There is no mass, hematoma, midline shift, or acute infarct. The paranasal sinuses are clear. The mastoid air cells are clear. The ventricles and sulci demonstrate mild age-related involutional changes. Scattered foci of T2 hyperintensity seen within the periventricular and subcortical white matter are nonspecific but suggestive of mild microvascular ischemic changes. The major vascular flow voids at the skull base are well-maintained. IMPRESSION: No acute intracranial abnormality. A few scattered foci of T2 hyperintensity seen within the periventricular and subcortical white matter are nonspecific but favor mild microvascular ischemic change. Electronically signed by: Humberto Landaverde M.D. 10/04/2016 7:01 PM Dictated Date/Time: 10/04/2016 6:56 PM BILATERAL LOWER EXTREMITY VENOUS DOPPLER CLINICAL HISTORY: Positive d-dimer. COMPARISON STUDY: No previous studies for comparison. TECHNIQUE: Sonography of the deep venous system of the bilateral lower extremities was performed. Compression and augmentation were evaluated. FINDINGS: The bilateral common femoral, superficial femoral and popliteal veins were compressible. Augmentation was normal. Flow was shown within the deep calf vessels. IMPRESSION: No evidence of deep venous thrombus within the bilateral lower extremities. Electronically signed by: Omer Walker M.D. 10/04/2016 7:52 PM Dictated Date/Time: 10/04/2016 7:52 PM Laboratory Results 10/04/16 13:10 Red Blood Count 4.40, Mean Corpuscular Volume 94.1, Mean Corpuscular Hemoglobin 31.4, Mean Corpuscular Hemoglobin Concent 33.3, Mean Platelet Volume 10.7, Neutrophils (%) (Auto) 77.1, Lymphocytes (%) (Auto) 14.6, Monocytes (%) (Auto) 6.6, Eosinophils (%) (Auto) 1.3, Basophils (%) (Auto) 0.2, Neutrophils # (Auto) 8.96, Lymphocytes # (Auto) 1.69, Monocytes # (Auto) 0.76, Eosinophils # (Auto) 0.15, Basophils # (Auto) 0.02 10/04/16 13:10 Test 10/04/16 13:10 White Blood Count 11.60 K/uL (4.8-10.8) Red Blood Count 4.40 M/uL (4.2-5.4) Hemoglobin 13.8 g/dL (12.0-16.0) Hematocrit 41.4 % (37-47) Mean Corpuscular Volume 94.1 fL (80-100) Mean Corpuscular Hemoglobin 31.4 pg (25-34) Mean Corpuscular Hemoglobin Concent 33.3 g/dl (32-36) Platelet Count 221 K/uL (130-400) Mean Platelet Volume 10.7 fL (7.4-10.4) Neutrophils (%) (Auto) 77.1 % Lymphocytes (%) (Auto) 14.6 % Monocytes (%) (Auto) 6.6 % Eosinophils (%) (Auto) 1.3 % Basophils (%) (Auto) 0.2 % Neutrophils # (Auto) 8.96 K/uL (1.4-6.5) Lymphocytes # (Auto) 1.69 K/uL (1.2-3.4) Monocytes # (Auto) 0.76 K/uL (0.11-0.59) Eosinophils # (Auto) 0.15 K/uL (0-0.5) Basophils # (Auto) 0.02 K/uL (0-0.2) RDW Standard Deviation 45.6 fL (36.4-46.3) RDW Coefficient of Variation 13.2 % (11.5-14.5) Immature Granulocyte % (Auto) 0.2 % Immature Granulocyte # (Auto) 0.02 K/uL (0.00-0.02) D-Dimer 550 ug/L FEU (0-500) Urine Color YELLOW Urine Appearance CLEAR (CLEAR) Urine pH 5.0 (4.5-7.5) Urine Specific [place] 1.016 (1.000-1.030) Urine Protein NEG (NEG) Urine Glucose (UA) NEG (NEG) Urine Ketones NEG (NEG) Urine Occult Blood NEG (NEG) Urine Nitrite NEG (NEG) Urine Bilirubin NEG (NEG) Urine Urobilinogen NEG (NEG) Urine Leukocyte Esterase SMALL (NEG) Urine WBC (Auto) 1-5 /hpf (0-5) Urine RBC (Auto) 0-4 /hpf (0-4) Urine Hyaline Casts (Auto) 0 /lpf (0-5) Urine Epithelial Cells (Auto) >30 /lpf (0-5) Urine Bacteria (Auto) NEG (NEG) Urine Yeast (Auto) (NONE PRSENT) Anion Gap 3.0 mmol/L (3-11) Est Creatinine Clear Calc Drug Dose 37.6 ml/min Estimated GFR () 58.9 Estimated GFR (Non- 50.8 BUN/Creatinine Ratio 15.8 (10-20) Calcium Level 9.3 mg/dl (8.5-10.1) Total Bilirubin 0.4 mg/dl (0.2-1) Aspartate Amino Transf (AST/SGOT) 16 U/L (15-37) Alanine Aminotransferase (ALT/SGPT) 24 U/L (12-78) Alkaline Phosphatase 94 U/L (45-117) Troponin I < 0.015 ng/ml (0-0.045) Total Protein 7.4 gm/dl (6.4-8.2) Albumin 3.9 gm/dl (3.4-5.0) Globulin 3.5 gm/dl (2.5-4.0) Albumin/Globulin Ratio 1.1 (0.9-2) Laboratory results per my review. Medications Administered Medications (Trade) Dose Ordered Sig/Benjamin Route Start Time Stop Time Status Last Admin Dose Admin Hydromorphone HCl (Dilaudid Inj) 0.5 mg NOW STAT IV 10/04/16 14:09 10/04/16 14:11 DC 10/04/16 14:21 0.5 MG Ondansetron HCl (Zofran Inj) 4 mg NOW STAT IV 10/04/16 14:09 10/04/16 14:11 DC 10/04/16 14:21 4 MG Sodium Chloride 500 ml @ 999 mls/hr Q31M STAT IV 10/04/16 14:09 10/04/16 14:39 DC 10/04/16 14:21 999 MLS/HR Lorazepam (Ativan Tab) 0.5 mg NOW STAT SL 10/04/16 18:14 10/04/16 18:15 DC 10/04/16 18:21 0.5 MG ECG Indication: other (Headache) Rate (beats per minute): 57 Rhythm: sinus bradycardia Findings: no ectopy, other (Normal axis) ED Course ED COURSE: Vital signs were reviewed and showed nothing abnormal. The patients medical record was reviewed The above diagnostic studies were performed and reviewed. ED treatments and interventions as stated above. 1358: The patient was evaluated in room A9. A complete history and physical examination was performed. 1409: Ordered Sodium Chloride 500 ml @ 999 mls/hr IV, Zofran Inj 4 mg IV, Dilaudid Inj 0.5 mg IV 1813: The patient told me that she is allergic to CT scan contrast. The D-Dimer test was ordered by mistake. 181: Ordered Ativan Tab 0.5 mg SL 2009: Upon reevaluation, the patient is resting. I discussed my findings with the patient and she understands and agrees with the treatment plan. The patient remained stable while under my care. The patient appeared well at the time of discharge. Medical Decision Differential Diagnosis includes but is not limited to headache, tension headache , cluster headache, migraine, subarachnoid hemorrhage, meningitis, mass, central venous thrombus, concussion, trauma and epidural/subdural hemorrhage, ischemic Stroke, hemorrhagic stroke, bells palsy, mass, neoplasm, migraine headache, seizure, TIA, and transient global amnesia. Patient is a 71-year-old female who presents the ER for an intermittent headache which is been present for the past 2 weeks. It comes and goes daily. No exacerbating or remitting factors. Today she notes when her headache began she had tingling in her bilateral lower extremities. She notes that her tongue felt big her and what it normally does. She had no trouble talking, eating, drinking or swallowing. No aphasia. notes it is with her all day and noticed no facial droop or slurred speech. There is no urticaria or rashes to suggest allergic reaction. Shortness of breath was present earlier today associated with a heart racing but denies any chest pain. Shortness of breath completed resolved following taking Ativan earlier along with the paresthesias in the upper extremities. CBC along with BMP, LFTs and troponin were negative. UA was negative. D-dimer was inadvertently ordered on this patient. Did come back slightly elevated at 550 but this would be normal for her age. EKG unremarkable. With her allergy to dye consequently ordered duplexes of the lower extremities which was negative. Patient does not present as a PE. Symptoms are consistent with likely anxiety. I was concerned about stroke and that is why a CT head was performed. Discussed with neurology and they recommended an MRI with her headache. MRI shows no acute pathology. Patient was updated. Throughout her stay in the ER shows slightly hypoxic following dose Dilaudid but this resolved on its own. Patient has no complaints. I do believe her symptoms worsen very to anxiety as they all completely resolved following. Discussed with Pt concerning signs and symptoms to watch out for. Pt was instructed to follow up with their PCP and discussed with the patient their option to return to the ED at anytime for persistent or worsening symptoms. The appropriate anticipatory guidance and out-patient management, including indications for return to the emergency department, were explained at length to the patient and understood. Medication Reconcilliation Current Medication List: was personally reviewed by me Blood Pressure Screening Patient's blood pressure: Normal blood pressure Blood pressure disposition: Did not require urgent referral Impression Primary Impression: Headache Additional Impression: Weakness Scribe Attestation The scribe's documentation has been prepared under my direction and personally reviewed by me in its entirety. I confirm that the note above accurately reflects all work, treatment, procedures, and medical decision making performed by me. Departure Information Dispostion Home / Self-Care Referrals Taiwo Wade M.D. (PCP) Forms HOME CARE DOCUMENTATION FORM, IMPORTANT VISIT INFORMATION, WORK / SCHOOL INSTRUCTIONS Patient Instructions Headache Pain, My [facility] Additional Instructions Please follow up with your primary care doctor or if you are a student, [facility] with in the next 24 hours. Any worsening of your symptoms, please return to the ED immediately. This includes any fevers greater than 100.4, worsening pain, chest pain, shortness breath, persistent nausea, vomiting, unable to eat or drink, or any other concerning signs or symptoms from your standpoint. You were given medications during this visit that will inhibit your ability to drive, operate machinery and work. Please do NOT drive, operate machinery, drink alcohol or work for the next 12hrs. You were found to have a blood pressure greater than 120 systolic over 90 diastolic. Due to the new Medicare guidelines, we are now recommending that you follow up with your primary care doctor in regards to this elevated blood pressure. Problem Qualifiers Primary Impression: Headache Headache type: unspecified Headache chronicity pattern: unspecified pattern Intractability: not intractable Qualified Codes: R51 - Headache
== END 2016-10-04 20:24 | disposition home or self-care (01) ==
LOC: C.EDB 12:25 → C.EDA 20:24
DX: R51 Headache (principal); R53.1 Weakness; R00.1 Bradycardia, unspecified; R06.02 Shortness of breath; E03.9 Hypothyroidism, unspecified; F17.200 Nicotine dependence, unspecified, uncomplicated; Z90.710 Acquired absence of both cervix and uterus; Z90.49 Acquired absence of other specified parts of digestive tract; Z79.82 Long term (current) use of aspirin; Z79.899 Other long term (current) drug therapy; Z88.2 Allergy status to sulfonamides; Z88.3 Allergy status to other anti-infective agents; Z88.5 Allergy status to narcotic agent; Z88.8 Allergy status to other drugs, medicaments and biological substances